=== PATIENT | female | born 1960 | race Caucasian/White ===

== ENCOUNTER 2017-08-17 21:57 | Inpatient (IN) | payer MEDICAID ==
[2017-08-17] MEDS ORDERED: ONDANSETRON 4 MG/2 ML VIAL ONE (22:23)
[2017-08-17] MEDS ORDERED: fentaNYL 100 MCG/2 ML INJ ONE (22:23)
[2017-08-17] MEDS ORDERED: NS 1,000 ML IV ONE (22:24)
[2017-08-17] MEDS ORDERED: ONDANSETRON 4 MG/2 ML VIAL IVP ONE (22:24)
[2017-08-17] MEDS: fentaNYL 100 MCG/2 ML INJ IVP ONE (22:26)
--- NOTE | 2017-08-17 23:14 | EDPHY ---
H & P Time Seen by Provider: 08/17/17 22:06 HPI/ROS: HPI Fall, right arm injury. 57-year-old female by private vehicle with friend. This patient reports that she stepped outside of the house, she tripped on a piece of slight and fell awkwardly onto her right arm. She complains of isolated mid right arm pain. She denies any loss of sensation or weakness in her hand. No neck pain. She did not hit her head. No loss of consciousness. She denies any other complaints. She is left-hand dominant. ROS: Constitutional: No fever, no chills. No weakness. Eyes: No discharge. No changes in vision. ENT: No sore throat. No nasal congestion or rhinorrhea. Respiratory: No cough. No shortness of breath. Cardiac: No chest pain, no palpitations. Gastrointestinal: No abdominal pain, no vomiting, no diarrhea. Genitourinary: No hematuria. No dysuria or increased frequency with urination. Musculoskeletal: No back pain. No neck pain. As above, no other extremity pain. Skin: No rashes. No lacerations or abrasions. Neurological: No headache. No focal weakness or altered sensation. Past medical history: Hypertension, hypothyroidism, depression, breast cancer, insomnia. 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 Nonsmoker. She has been drinking alcohol tonight. Physical Exam: General Appearance: Alert, no distress. This patient is responding to questions appropriately and in full sentences. This patient appears well- hydrated and well-nourished. Head: Normocephalic atraumatic. Face: Facial bones are stable on palpation. Eyes: Pupils equal and round and reactive to light, no pallor or injection. No lid erythema or edema. ENT, Mouth: Mucous membranes moist. Dentition is intact. No malocclusion of the jaw. No tongue lacerations or abrasions. Pharynx is clear. The bilateral nasal canals are clear. No septal hematoma. Respiratory: There are no retractions, lungs are clear to auscultation with good air movement bilaterally. Chest wall is stable to AP and lateral palpation. Cardiovascular: Regular rate and rhythm. No murmur. Gastrointestinal: Abdomen is soft and nontender, no masses, bowel sounds normal. Neurological: Motor sensory function is intact. Cranial nerves are normal. Cerebellar function intact. Skin: Warm and dry, no rashes. No lacerations, abrasions or contusions. Musculoskeletal: Neck is supple and nontender. The trachea is midline. No midline cervical, thoracic, lumbar or sacral tenderness on palpation. No flank tenderness on palpation. Right upper extremity exam: She has tenderness on palpation with deformity noted mid humerus. Skin is intact. Normal capillary refill in all digits. She is neurologically intact in all myotomes in dermatomes of her right hand. Strong distal radial and ulnar pulse. Otherwise, extremities are symmetrical, full range of motion except noted. All joints in the bilateral upper and bilateral lower extremities range without pain or impingement except noted. No tenderness on palpation of the long bones in the bilateral upper and bilateral lower extremities except noted. Psychiatric: No agitation. No depression. Database: EKG: Imaging: Right shoulder, right elbow and humerus series x-ray: Significant for a comminuted oblique fracture proximal 1/3 of the humerus. Interpreted by me. Procedures: Emergency department course: IV was placed. She was placed on a monitor. Her vital signs were reviewed. She was given 100 mcg of IV fentanyl for pain control initially. This will be repeated as needed for pain control. X-rays as above were obtained. She was placed in a sling. 11:10 p.m., patient re-evaluated. Right upper extremity is neurovascularly intact. Results of x-rays discussed with her. Her friend who brought her here explained to me that was very difficult to get her here. Any movement causes her significant pain. I do not think she will do well being discharged. Plan will be to admit her to the hospitalist service for pain management and have Orthopedics consult for management of her humerus fracture. She endorses. 11:15 p.m., spoke with on-call orthopedic surgeon Dr. Tony Sampson. Case discussed with him. He will see this patient in the morning. 11:20 p.m., spoke with hospitalist, Dr. García. Case discussed in detail. Patient accepted for admission to hospitalist service with plan as above. Patient's remaining emergency department course under my care uneventful. Right upper extremity has remained neurovascularly intact in the emergency department. Her pain has been controlled. Differential Diagnosis: The differential diagnosis on this patient includes but is not limited to proximal humerus fracture. Glenohumeral joint dislocation, AC joint injury, clavicle fracture, pneumothorax, traumatic brain injury, cervical spine injury unlikely. This represents a partial list of diagnoses considered. These considerations are based on history, physical exam, past history, reassessment and diagnostic testing. Smoking Status: Former smoker Constitutional: Initial Vital Signs Temperature (C) 36.7 C 08/17/17 22:13 Heart Rate 83 08/17/17 22:13 Respiratory Rate 18 08/17/17 22:13 Blood Pressure 136/89 H 08/17/17 22:13 O2 Sat (%) 100 08/17/17 22:13 O2 Delivery Mode Room Air O2 (L/minute) 3 Allergies/Adverse Reactions: cephalexin monohydrate [From Keflex] Allergy (Intermediate, Verified 11/14/15 13 :41) FAMILY HISTORY OF ALLERGIES dexamethasone [Dexamethasone] Allergy (Intermediate, Verified 11/14/15 13:41) BODY ACHES Home Medications: Medication Instructions Recorded Levothyroxine [Synthroid 100 mcg 100 mcg PO DAILY 12/15/12 (RX)] Lisinopril [Zestril 40 mg (RX)] 40 mg PO DAILY 12/15/12 Metoprolol Succinate 50 mg PO DAILY 12/15/12 Multivitamins [Tab-A-Tomy] 1 each PO DAILY 12/15/12 PARoxetine HCL [Paxil 20mg (RX)] 20 mg PO DAILY 12/15/12 Zolpidem Tartrate 5 - 10 mg PO HS 12/22/12 Medical Decision Making - Diagnostics Imaging Results: Imaging Impressions Humerus X-Ray 08/17/17 22:12 Impression: Comminuted displaced and angulated proximal diaphysis fracture right humerus. - Data Points Laboratory Results: Laboratory Results 08/17/17 22:40 08/17/17 22:40 08/17/17 08/17/17 08/17/17 22:40 22:40 22:40 WBC RBC Hgb Hct MCV MCH MCHC RDW Plt Count MPV Neut % (Auto) Lymph % (Auto) Stoddard % (Auto) Eos % (Auto) Baso % (Auto) Nucleat RBC Rel Count Absolute Neuts (auto) Absolute Lymphs (auto) Absolute Monos (auto) Absolute Eos (auto) Absolute Basos (auto) Absolute Nucleated RBC Immature Gran % Immature Gran # PT 12.7 SEC SEC (12.0-15.0) INR 0.93 (0.83-1.16) APTT 26.8 SEC SEC (23.0-38.0) Sodium Potassium Chloride Carbon Dioxide Anion Gap BUN Creatinine Estimated GFR Glucose Calcium Total Bilirubin 0.1 mg/dL mg/dL (0.1-1.4) Conjugated Bilirubin 0.1 mg/dL mg/dL (0.0-0.5) Unconjugated Bilirubin 0.0 mg/dL mg/dL (0.0-1.1) AST 23 IU/L IU/L (14-46) ALT 32 IU/L IU/L (9-52) Alkaline Phosphatase 92 IU/L IU/L (38-126) Total Protein 6.5 g/dL g/dL (6.3-8.2) Albumin 3.7 g/dL g/dL (3.5-5.0) Beta HCG, Qual NEGATIVE Ethyl Alcohol 08/17/17 08/17/17 22:40 22:40 WBC 7.95 10^3/uL 10^3/uL (3.80-9.50) RBC 3.42 10^6/uL L 10^6/uL (4.18-5.33) Hgb 11.9 g/dL L g/dL (12.6-16.3) Hct 35.3 % L % (38.0-47.0) MCV 103.2 fL H fL (81.5-99.8) MCH 34.8 pg H pg (27.9-34.1) MCHC 33.7 g/dL g/dL (32.4-36.7) RDW 13.6 % % (11.5-15.2) Plt Count 185 10^3/uL 10^3/uL (150-400) MPV 10.4 fL fL (8.7-11.7) Neut % (Auto) 71.6 % % (39.3-74.2) Lymph % (Auto) 20.1 % % (15.0-45.0) Stoddard % (Auto) 6.5 % % (4.5-13.0) Eos % (Auto) 0.5 % L % (0.6-7.6) Baso % (Auto) 0.4 % % (0.3-1.7) Nucleat RBC Rel Count 0.0 % % (0.0-0.2) Absolute Neuts (auto) 5.69 10^3/uL 10^3/uL (1.70-6.50) Absolute Lymphs (auto) 1.60 10^3/uL 10^3/uL (1.00-3.00) Absolute Monos (auto) 0.52 10^3/uL 10^3/uL (0.30-0.80) Absolute Eos (auto) 0.04 10^3/uL 10^3/uL (0.03-0.40) Absolute Basos (auto) 0.03 10^3/uL 10^3/uL (0.02-0.10) Absolute Nucleated RBC 0.00 10^3/uL 10^3/uL (0-0.01) Immature Gran % 0.9 % % (0.0-1.1) Immature Gran # 0.07 10^3/uL 10^3/uL (0.00-0.10) PT INR APTT Sodium 145 mEq/L H mEq/L (134-144) Potassium 4.1 mEq/L mEq/L (3.5-5.2) Chloride 113 mEq/L H mEq/L (97-110) Carbon Dioxide 16 mEq/l L mEq/l (22-31) Anion Gap 16 mEq/L mEq/L (8-16) BUN 27 mg/dL H mg/dL (7-23) Creatinine 1.1 mg/dL H mg/dL (0.6-1.0) Estimated GFR 52 Glucose 98 mg/dL mg/dL (70-100) Calcium 9.4 mg/dL mg/dL (8.5-10.4) Total Bilirubin Conjugated Bilirubin Unconjugated Bilirubin AST ALT Alkaline Phosphatase Total Protein Albumin Beta HCG, Qual Ethyl Alcohol 100 mg/dL H mg/dL (0-10) Medications Given: Acetaminophen (Tylenol) 650 mg PO Q4HRS PRN PRN Reason: Pain, Mild/Fever, Can Take PO Stop: 02/14/18 00:02 Last Admin: 08/18/17 02:44 Dose: 650 mg Lactated Ringer's (Lr) 1,000 mls @ 125 mls/hr IV CONT NALDO Stop: 02/14/18 02:29 Last Admin: 08/18/17 02:45 Dose: 1,000 mls Lorazepam (Ativan) 0.5 - 1 mg PO Q8HRS PRN PRN Reason: Anxiety, Able to Take PO Stop: 02/14/18 00:02 Last Admin: 08/18/17 00:46 Dose: 1 mg Morphine Sulfate (Morphine) 1 - 2 mg IVP Q1HR PRN PRN Reason: Pain, Severe Unable to Take PO Stop: 08/28/17 00:02 Last Admin: 08/18/17 05:02 Dose: 2 mg Oxycodone HCl (Oxycodone Ir) 5 - 10 mg PO Q3HRS PRN PRN Reason: Pain, Severe Able to Take PO Stop: 08/28/17 00:02 Last Admin: 08/18/17 03:52 Dose: 10 mg Discontinued Medications Fentanyl (Sublimaze) 100 mcg IVP EDNOW ONE Stop: 08/17/17 22:25 Last Admin: 08/18/17 00:21 Dose: 100 mcg Fentanyl (Sublimaze) 100 mcg IVP EDNOW ONE Stop: 08/18/17 00:18 Last Admin: 08/18/17 00:26 Dose: Not Given Sodium Chloride (Ns) 1,000 mls @ 0 mls/hr IV EDNOW ONE; Wide Open PRN Reason: Protocol Stop: 08/17/17 22:25 Last Admin: 08/17/17 22:25 Dose: 1,000 mls Ondansetron HCl (Zofran) 4 mg IVP EDNOW ONE Stop: 08/17/17 22:25 Last Admin: 08/17/17 22:26 Dose: 4 mg Thiamine HCl (Vitamin B-1) 100 mg PO ONCE ONE Stop: 08/18/17 00:07 Last Admin: 08/18/17 01:09 Dose: 100 mg Departure - Departure Disposition: [facility] Inpatient Acute Clinical Impression: History of fall, Closed comminuted right humeral fracture
[2017-08-17 23:20] LABS: % IMMATURE GRANULYOCYTES 0.9 % (0.0-1.1); ABSOLUTE IMMATURE GRANULOCYTES 0.07 10^3/uL (0.00-0.10); ADD DIFF? NO; ADD MORPH? NO; ADD SCAN? NO; ATYPICAL LYMPHOCYTE FLAG 10 (0-99); FRAGMENT RBC FLAG 0 (0-99); HEMATOCRIT 35.3 % (38.0-47.0); HEMOGLOBIN 11.9 g/dL (12.6-16.3); LEFT SHIFT FLG 0 (0-99); LIPEMIA HEMOLYSIS FLAG 80 (0-99); MEAN CELL HEMOGLOBIN 34.8 pg (27.9-34.1); MEAN CELL HEMOGLOBIN CONCENTR. 33.7 g/dL (32.4-36.7); MEAN CELL VOLUME 103.2 fL (81.5-99.8); MEAN PLATELET VOLUME 10.4 fL (8.7-11.7); PLATELET CLUMPS FLAG 30 (0-99); PLATELET COUNT 185 10^3/uL (150-400); RED BLOOD CELL COUNT 3.42 10^6/uL (4.18-5.33); RED CELL DISTRIBUTION WIDTH 13.6 % (11.5-15.2)
[2017-08-17 23:30] LABS: ANION GAP 16 mEq/L (8-16); CALCIUM 9.4 mg/dL (8.5-10.4); CARBON DIOXIDE 16 mEq/l (22-31); CHLORIDE 113 mEq/L (97-110); CREATININE 1.1 mg/dL (0.6-1.0); ETHANOL SERUM 100 mg/dL (0-10); GLOMERULAR FILTRATION RATE 52; GLUCOSE 98 mg/dL (70-100); POTASSIUM 4.1 mEq/L (3.5-5.2); SODIUM 145 mEq/L (134-144)
[2017-08-18] MEDS ORDERED: PROMETHAZINE HCL 25 MG/ML INJ IVP PRN (00:03)
[2017-08-18] MEDS ORDERED: diphenhydrAMINE 25 MG CAP PO PRN (00:03)
[2017-08-18] MEDS ORDERED: LORazepam 0.5 MG TAB PO PRN (00:03)
[2017-08-18] MEDS ORDERED: ACETAMINOPHEN 325 MG TAB PO PRN (00:03)
[2017-08-18] MEDS ORDERED: ONDANSETRON 4 MG/2 ML VIAL IVP PRN (00:03)
[2017-08-18] MEDS ORDERED: THIAMINE HCL 100 MG TAB PO ONE (00:06)
[2017-08-18] MEDS ORDERED: fentaNYL 100 MCG/2 ML INJ IVP ONE (00:17)
[2017-08-18] MEDS: fentaNYL 100 MCG/2 ML INJ IVP ONE (00:21)
[2017-08-18 00:22] LABS: INR 0.93 (0.83-1.16); PROTIME(PATIENT) 12.7 SEC (12.0-15.0)
[2017-08-18 00:23] LABS: APTT 26.8 SEC (23.0-38.0)
[2017-08-18 00:28] LABS: ALBUMIN 3.7 g/dL (3.5-5.0); BILIRUBIN,TOTAL 0.1 mg/dL (0.1-1.4); BILIRUBIN-CONJUGATED 0.1 mg/dL (0.0-0.5); TOTAL PROTEIN 6.5 g/dL (6.3-8.2)
[2017-08-18] MEDS: oxyCODONE IR 5 MG TAB PO PRN ×6 (01:09→21:03)
--- NOTE | 2017-08-18 01:49 | PDGENHP ---
History and Physical - Chief Complaint right arm pain - History of Present Illness Source- patient provides history and appears reliable. case discussed with ED provider and EMR reviewed. HPI - Pleasant 57 yo F with pmhx significant for HTN, depression, obesity (BMI 37), and regular alcohol use who presents to the ED today following a mechanical fall and resulting right arm pain. Patient reports she was coming back into the house and tripped on a step of a wooden deck which was not light. Patient landed on her right arm and "it felt like it had shattered." Patient denies any head injury of loss of consciousness. She denies any numbness or tingling in her arm or hand. Patient is noting significant pain increase since she was placed into a sling. Patient denies any preceding lightheadedness, chest pain or shortness of breath before her fall. History Information - Allergies/Home Medication List Allergies/Adverse Reactions: cephalexin monohydrate [From Keflex] Allergy (Intermediate, Verified 11/14/15 13 :41) FAMILY HISTORY OF ALLERGIES dexamethasone [Dexamethasone] Allergy (Intermediate, Verified 11/14/15 13:41) BODY ACHES Home Medications: Levothyroxine [Synthroid 100 mcg (RX)] 100 mcg PO DAILY 12/15/12 [Last Taken 07/28 07:00] Lisinopril [Zestril 40 mg (RX)] 40 mg PO DAILY 12/15/12 [Last Taken 12/23/12] Metoprolol Succinate 50 mg PO DAILY 12/15/12 [Last Taken 12/24/12] Multivitamins [Tab-A-Tomy] 1 each PO DAILY 12/15/12 [Last Taken 12/23/12] PARoxetine HCL [Paxil 20mg (RX)] 20 mg PO DAILY 12/15/12 [Last Taken 12/24/12] Zolpidem Tartrate 5 - 10 mg PO HS 12/22/12 [Last Taken 12/23/12] I have personally reviewed and updated: family history, medical history, social history, surgical history - Past Medical History Additional medical history: hx Breast cancer s/p left mastectomy. benign essential HTN. hypothyroidism. depression. obesity (BMI 37). regular moderate alcohol use (every other day) - Surgical History Additional surgical history: left mastectomy - Family History Additional family history: father - DM, CAD/stents. mother - atrial fibrillation. MGM - HTN, CAD - Social History Smoking Status: Former smoker Tobacco Use: Cigarettes Alcohol Use: Other (moderate use every other day 2-3 vodka based beverages or wine.) Drug Use: Marijuana (occasional ) Additional social history: COR - FULL. Daughter yue THORNTON. Review of Systems Review of Systems: ROS: 10pt was reviewed & negative except for what was stated in HPI & below Constitutional: Reports: no symptoms EENMT: Reports: no symptoms, other (dry mouth) Cardiac: Reports: no symptoms Respiratory: Reports: no symptoms Gastrointestinal: Reports: no symptoms Genitourinary: Reports: no symptoms Muscolosketal: Reports: joint pain (right arm), muscle pain (right arm) Skin: Reports: no symptoms Neurological: Reports: no symptoms. Denies: anxiety, depressed, headache, numbness, tingling Hematologic/Lymphatic: Denies: easy bleeding, easy bruising Physical Exam Physical Exam: Selected Entries 08/17/17 22:13 Blood Pressure Automatic Method Heart Rate 83 Respiratory 18 Rate O2 Sat (%) 100 Temperature (C) 36.7 C Blood Pressure 136/89 H Mean Arterial 104 H Pressure (MAP) O2 Delivery Room Air Mode Temp Pulse Resp BP Pulse Ox 36.9 C 68 16 135/66 H 98 08/18/17 01:13 08/18/17 01:13 08/18/17 01:13 08/18/17 01:13 08/18/17 01:13 O2 (L/minute) 3 Constitutional: obese, uncomfortable, other (patient in mild distress 2/2 pain and tearful. her right arm is in a sling. ) Eyes: PERRL (decreased reactivity to light bilaterally but symmetric. ), anicteric sclera, EOMI, scleral injection (mild) Ears, Nose, Mouth, Throat: dry mucous membranes, other (no nasal discharge. ), No oral ulcer, No poor dentition Cardiovascular: regular rate and rhythym, no murmur, rub, or gallop, No systolic murmur, No edema Peripheral Pulses: 1+: dorsalis-pedis (R), dorsalis-pedis (L) Respiratory: no respiratory distress, no rales or rhonchi, clear to auscultation Gastrointestinal: normoactive bowel sounds, soft, non-tender abdomen, no palpable masses, other (obese abdomen) Genitourinary: no bladder tenderness, No azul in urethra Skin: warm, normal color, No rash Musculoskeletal: joint tenderness (right arm), pain with ROM (right arm), No generalized weakness Neurologic: AAOx3, CN II-XII Intact, No numbness, No facial droop Psychiatric: interacting appropriately, thought process linear, anxious, No poor insight, No poor judgement, No poor memory Lab Data & Imaging Review 08/17/17 22:40 08/17/17 22:40 WBC 7.95 10^3/uL (3.80-9.50) 08/17/17 22:40 RBC 3.42 10^6/uL (4.18-5.33) L 08/17/17 22:40 Hgb 11.9 g/dL (12.6-16.3) L 08/17/17 22:40 Hct 35.3 % (38.0-47.0) L 08/17/17 22:40 MCV 103.2 fL (81.5-99.8) H 08/17/17 22:40 MCH 34.8 pg (27.9-34.1) H 08/17/17 22:40 MCHC 33.7 g/dL (32.4-36.7) 08/17/17 22:40 RDW 13.6 % (11.5-15.2) 08/17/17 22:40 Plt Count 185 10^3/uL (150-400) 08/17/17 22:40 MPV 10.4 fL (8.7-11.7) 08/17/17 22:40 Neut % (Auto) 71.6 % (39.3-74.2) 08/17/17 22:40 Lymph % (Auto) 20.1 % (15.0-45.0) 08/17/17 22:40 Warrick % (Auto) 6.5 % (4.5-13.0) 08/17/17 22:40 Eos % (Auto) 0.5 % (0.6-7.6) L 08/17/17 22:40 Baso % (Auto) 0.4 % (0.3-1.7) 08/17/17 22:40 Nucleat RBC Rel Count 0.0 % (0.0-0.2) 08/17/17 22:40 Absolute Neuts (auto) 5.69 10^3/uL (1.70-6.50) 08/17/17 22:40 Absolute Lymphs (auto) 1.60 10^3/uL (1.00-3.00) 08/17/17 22:40 Absolute Monos (auto) 0.52 10^3/uL (0.30-0.80) 08/17/17 22:40 Absolute Eos (auto) 0.04 10^3/uL (0.03-0.40) 08/17/17 22:40 Absolute Basos (auto) 0.03 10^3/uL (0.02-0.10) 08/17/17 22:40 Absolute Nucleated RBC 0.00 10^3/uL (0-0.01) 08/17/17 22:40 Immature Gran % 0.9 % (0.0-1.1) 08/17/17 22:40 Immature Gran # 0.07 10^3/uL (0.00-0.10) 08/17/17 22:40 PT 12.7 SEC (12.0-15.0) 08/17/17 22:40 INR 0.93 (0.83-1.16) 08/17/17 22:40 APTT 26.8 SEC (23.0-38.0) 08/17/17 22:40 Sodium 145 mEq/L (134-144) H 08/17/17 22:40 Potassium 4.1 mEq/L (3.5-5.2) 08/17/17 22:40 Chloride 113 mEq/L (97-110) H 08/17/17 22:40 Carbon Dioxide 16 mEq/l (22-31) L 08/17/17 22:40 Anion Gap 16 mEq/L (8-16) 08/17/17 22:40 BUN 27 mg/dL (7-23) H 08/17/17 22:40 Creatinine 1.1 mg/dL (0.6-1.0) H 08/17/17 22:40 Estimated GFR 52 08/17/17 22:40 Glucose 98 mg/dL (70-100) 08/17/17 22:40 Calcium 9.4 mg/dL (8.5-10.4) 08/17/17 22:40 Total Bilirubin 0.1 mg/dL (0.1-1.4) 08/17/17 22:40 Conjugated Bilirubin 0.1 mg/dL (0.0-0.5) 08/17/17 22:40 Unconjugated Bilirubin 0.0 mg/dL (0.0-1.1) 08/17/17 22:40 AST 23 IU/L (14-46) 08/17/17 22:40 ALT 32 IU/L (9-52) 08/17/17 22:40 Alkaline Phosphatase 92 IU/L (38-126) 08/17/17 22:40 Total Protein 6.5 g/dL (6.3-8.2) 08/17/17 22:40 Albumin 3.7 g/dL (3.5-5.0) 08/17/17 22:40 Beta HCG, Qual NEGATIVE 08/17/17 22:40 Ethyl Alcohol 100 mg/dL (0-10) H 08/17/17 22:40 Imaging Review: Right humerus, 2 views. History: Pain. Findings: There is a comminuted fracture of the proximal diaphysis of the right humerus. 1.7 cm of lateral displacement of the distal shaft to the proximal shaft and posterior angulation. Glenohumeral articulation is unremarkable. Degenerative change acromioclavicular joint. Impression: Comminuted displaced and angulated proximal diaphysis fracture right humerus. Assessment & Plan Assessment: Closed comminuted left humeral fracture (Acute) - Dr. Sampson with ortho team consulted from ED and will plan to have patient evaluated in AM by team. patient in a sling at this time. she will be npo. will also check coags 2/2 hx of etoh. History of fall (Acute) - patient reports tripping on [employer] step. PT/OT. pain 2/2 trauma - morphine, oxy ir (minimize tylenol with etoh currently in system). alcohol consumption moderate - will need further counseling after patient sobered. patient with macrocytic anemia will be given thiamine. ativan prn. ROSANA - mild - pt baseline cr appears 0.9. Patient appears dehydrated. will given IVF supplementation while patient npo. anemia - macrocytosis present so suspect etoh related however also possible related to patient right arm fracture. no evidence of active bleeding. will continue to monitor. hypernatremia - likely 2/2 dehydration. IVF as above. hyperchloridemia - IVF as above. chronic medical problems benign essential HTN - initial BPs elevated likely 2/2 pain. monitor. hydralazine prn. hypothyroidism - resume l-thyroxine when diet advanced. depression - resume patient paxil when diet advanced. obesity (BMI 37) FEN - IVF overnight while npo. electrolyte replacement prn. PPX - SCDs. holding anticoagulation pending ortho recommendations. COR - FULL. Patient daughter Yue to act as proxy. Dispo - Admit to observation on the medical floor at this time.
[2017-08-18] MEDS ORDERED: LR 1,000 ML IV SCH (02:30)
[2017-08-18 05:11] LABS: % IMMATURE GRANULYOCYTES 0.5 % (0.0-1.1); ABSOLUTE IMMATURE GRANULOCYTES 0.03 10^3/uL (0.00-0.10); ADD DIFF? NO; ADD MORPH? NO; ADD SCAN? NO; ATYPICAL LYMPHOCYTE FLAG 0 (0-99); FRAGMENT RBC FLAG 0 (0-99); HEMOGLOBIN 10.4 g/dL (12.6-16.3); LEFT SHIFT FLG 0 (0-99); LIPEMIA HEMOLYSIS FLAG 80 (0-99); MEAN CELL HEMOGLOBIN 34.8 pg (27.9-34.1); MEAN CELL HEMOGLOBIN CONCENTR. 33.5 g/dL (32.4-36.7); MEAN CELL VOLUME 103.7 fL (81.5-99.8); MEAN PLATELET VOLUME 10.6 fL (8.7-11.7); PLATELET CLUMPS FLAG 0 (0-99); PLATELET COUNT 173 10^3/uL (150-400); RED BLOOD CELL COUNT 2.99 10^6/uL (4.18-5.33); RED CELL DISTRIBUTION WIDTH 13.7 % (11.5-15.2)
[2017-08-18 05:29] LABS: ALANINE AMINOTRANSFERASE 35 IU/L (9-52); ALBUMIN 3.1 g/dL (3.5-5.0); ALKALINE PHOSPHATASE 70 IU/L (38-126); ANION GAP 8 mEq/L (8-16); ASPARTATE AMINOTRANSFERASE 21 IU/L (14-46); BILIRUBIN,TOTAL 0.2 mg/dL (0.1-1.4); CALCIUM 8.8 mg/dL (8.5-10.4); CARBON DIOXIDE 21 mEq/l (22-31); CHLORIDE 111 mEq/L (97-110); CREATININE 0.9 mg/dL (0.6-1.0); GLOMERULAR FILTRATION RATE > 60; GLUCOSE 94 mg/dL (70-100); MAGNESIUM 1.7 mg/dL (1.6-2.3); POTASSIUM 4.7 mEq/L (3.5-5.2); SODIUM 140 mEq/L (134-144); TOTAL PROTEIN 5.7 g/dL (6.3-8.2)
--- NOTE | 2017-08-18 06:36 | GCON ---
[f rep st] CONSULTATION DATE OF CONSULTATION: 08/18/2017 REASON FOR CONSULTATION: Right upper extremity injury. HISTORY OF PRESENT ILLNESS: The patient is a 57-year-old, left hand-dominant woman, who on the i ng of admission, sustained a fall on her right outstretched arm, resulting in right upper arm pain. She denies any previous problems specific to her right upper extremity, but states that she did have chemotherapy for cancer 6 years ago, and had "bony involvement" at that time. EXAMINATION: Relative to the consultation reveals diffuse swelling in her right upper arm with circu mferential tenderness. Her distal neurovascular exam including radial, median, and ulnar nerves, is grossly intact to motor and sensory exams. IMAGING: Radiographs show evidence of a middiaphyseal humerus fracture with marked comminution. The re is mild translation of the fracture, but overall favorable angular alignment. ASSESSMENT: Closed right diaphyseal humerus fracture. PLAN: I spoke with the patient regarding her condition and treatment options. Both risks and benefi ts of surgical and nonsurgical treatment were discussed in detail. Based on the fact that if this fr acture stays reasonably well lined up, the likelihood is it will heal uneventfully with nonsurgical t reatment. It was recommended that a nonoperative approach be pursued. She was informed; however, th at if alignment changes, an operative approach may be recommended in the future. She will utilize a sling and was instructed on having her arm as best as possible in a dependent position. After approx imately 1 week, she can be transitioned into a humeral fracture brace. Followup will be in 1 week (1 10/27/2016) at which point, repeat radiographs will be obtained to assess alignment. /[id number]/MODL
[2017-08-18 06:52] LABS: COLOR YELLOW; LEUKOCYTE ESTERASE,URINE 3+ (NEGATIVE); NITRITE,URINE NEGATIVE (NEGATIVE)
[2017-08-18 07:00] LABS: BACTERIA TRACE /hpf (NONE SEEN); MUCUS TRACE /lpf (NONE-1+); WBC,URINE 50-182 /hpf (0-3)
[2017-08-18 07:01] LABS: RBC,URINE NONE SEEN /hpf (0-3)
[2017-08-18] MEDS: THIAMINE HCL 100 MG TAB PO SCH (07:57)
--- NOTE | 2017-08-18 10:56 | HOSPPROG ---
Hospitalist Progress Note Assessment/Plan: Patient is a 57-year-old female who fell and sustained a right humerus fracture. Today is my 1st encounter with the patient. Chart reviewed. *Closed comminuted left humeral fracture (Acute) - Dr. Sampson evaluated her and recommended nonsurgical approach at this time -to wear a sling for 1 week and then a humeral fracture brace -further followup with Orthopedics in 1 week * gait instability with fall * pyuria -asked for urine culture *hypoxemia -secondary from narcotics most likely -will monitor * anemia -further f/u with PCP * macrocytosis * alcohol use -she doesn't believe this impacted her falling -reviewed w her the BAL *Hypernatremia -resolved, due to dehydration * hypothyroidism -home meds restarted * depression -on Paxil * obesity with a BMI of 37 * acute kidney injury -resolved *Plan: will have PT and OT see her to help mobilize her. If stable, will dc this afternoonl Subjective: Silvia said her pain was elevated during the night, better when I evaluated her. Objective: Vital Signs Temp Pulse Resp BP Pulse Ox 36.6 C 66 16 120/57 L 99 08/18/17 07:27 08/18/17 07:27 08/18/17 07:27 08/18/17 07:27 08/18/17 07:27 Laboratory Results 08/18/17 04:10 08/18/17 04:10 08/17/17 08/18/17 08/19/17 05:59 05:59 05:59 Intake Total 1500 780 Output Total 500 300 Balance 1000 480 PT 12.7 SEC (12.0-15.0) 08/17/17 22:40 INR 0.93 (0.83-1.16) 08/17/17 22:40 - Physical Exam Constitutional: appears nourished, obese, uncomfortable Eyes: PERRL Ears, Nose, Mouth, Throat: hearing normal Cardiovascular: regular rate and rhythym Respiratory: no respiratory distress Gastrointestinal: normoactive bowel sounds Skin: other (good cms on right hand, fingers) Musculoskeletal: muscular tenderness (right arm) Neurologic: AAOx3, sensation intact bilaterally Psychiatric: interacting appropriately, not anxious, not encephalopathic ICD10 Worksheet Patient Problems: Problems Problem Status Onset Closed comminuted right humeral fracture Acute History of fall Acute Neoplasm of breast Active Left knee sprain Acute Right foot sprain Acute
[2017-08-18] MEDS: LEVOTHYROXINE 112 MCG TAB PO SCH (11:26)
[2017-08-18] MEDS: METOPROLOL SUCCINATE XR 50 MG TAB PO SCH (11:27)
[2017-08-18] MEDS: LISINOPRIL 40 MG TAB PO SCH (11:27)
[2017-08-18] MEDS: PARoxetine HCL 20 MG TAB PO SCH (12:10)
[2017-08-18] MEDS: HYDROCODONE/APAP 5/325 TAB PO PRN ×3 (14:08→22:54)
--- NOTE | 2017-08-18 15:13 | PDMN ---
Medical Necessity Medical necessity: Change to IP, as of 08/18/17, per [employer]; los >2 mn for ongoing eval/tx of acute closed comminuted L humeral fx w/significant pain r/t fall; per progress note & order 08/18/17
[2017-08-18 16:39] LABS: PHENCYCLIDINE URINE BCH < 6 ng/ml (NEGATIVE); PHENCYCLIDINE URINE BCH NEGATIVE (NEGATIVE); TETRAHYDROCANNABINOL URINE 29 ng/mL (NEGATIVE); TETRAHYDROCANNABINOL URINE NEGATIVE (NEGATIVE)
--- NOTE | 2017-08-18 17:00 | ASMTCMCOM ---
CM Note CM Note Notes: Pt admitted to hospital after fall with R humerus fx. 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 PT recommending out pt PT and OT recommending home w/no OT f/u needed. Discussed w/RN. Anticipate dc home independant but CM will follow for changes/needs. Date Signed: 08/18/2017 05:00 PM Electronically Signed By:Tammy Lindsey RN
[2017-08-19] MEDS: oxyCODONE IR 5 MG TAB PO PRN ×4 (00:50→12:10)
[2017-08-19 05:07] LABS: HEMATOCRIT 32.6 % (38.0-47.0); HEMOGLOBIN 10.4 g/dL (12.6-16.3)
[2017-08-19] MEDS: LEVOTHYROXINE 112 MCG TAB PO SCH (06:43)
[2017-08-19] MEDS: HYDROCODONE/APAP 5/325 TAB PO PRN (06:43)
[2017-08-19 07:27] VITALS: RESP 16; TEMP 98; O2SAT 97
[2017-08-19] MEDS: LISINOPRIL 40 MG TAB PO SCH (08:16)
[2017-08-19] MEDS: METOPROLOL SUCCINATE XR 50 MG TAB PO SCH (08:16)
[2017-08-19] MEDS: THIAMINE HCL 100 MG TAB PO SCH (08:16)
[2017-08-19] MEDS: PARoxetine HCL 20 MG TAB PO SCH (08:16)
[2017-08-19 08:19] VITALS: BP 131/69; PULSE 71
[2017-08-19] MEDS ORDERED: MAGNESIUM HYDROXIDE 30 ML UDCUP PO PRN (08:32)
[2017-08-19] MEDS ORDERED: BISACODYL 10 MG SUPP PR PRN (08:32)
[2017-08-19] MEDS ORDERED: IBUPROFEN 200 MG TAB PO PRN (08:32)
[2017-08-19] MEDS ORDERED: LACTULOSE 20 GM/30 ML UDCUP PO PRN (08:32)
--- NOTE | 2017-08-19 08:34 | HOSPPROG ---
Hospitalist Progress Note Assessment/Plan: Patient is a 57-year-old female who fell and sustained a right humerus fracture. *Closed comminuted left humeral fracture (Acute) - Dr. Smapson evaluated her and recommended nonsurgical approach at this time -further followup with Orthopedics in 1 week -pain cont to be difficult to manage even w pain medications, trial of ibuprofen (use temporarily) * gait instability with fall * pyuria -asked for urine culture *hypoxemia -secondary from narcotics most likely -will monitor -check a chest xray today * anemia -further f/u with PCP * macrocytosis * alcohol use -she doesn't believe this impacted her falling -reviewed w her the BAL *Hypernatremia -resolved, due to dehydration * hypothyroidism -home meds restarted * depression -on Paxil * obesity with a BMI of 37 * acute kidney injury -resolved *Plan: will get a chest xray and humerus xray prior to dc today. Hopefully, can go later this afternoon if pain is better. Subjective: Silvia said her right arm is having ongoing pain. She is concerned and would like another xray of her arm. Objective: Vital Signs Temp Pulse Resp BP Pulse Ox 36.7 C 71 16 131/69 H 97 08/19/17 07:25 08/19/17 08:16 08/19/17 07:25 08/19/17 08:16 08/19/17 07:25 Laboratory Results 08/19/17 04:05 08/18/17 08/19/17 08/20/17 05:59 05:59 05:59 Intake Total 1230 Output Total 200 Balance 1030 PT 12.7 SEC (12.0-15.0) 08/17/17 22:40 INR 0.93 (0.83-1.16) 08/17/17 22:40 - Physical Exam Constitutional: no apparent distress, uncomfortable, No not in pain Eyes: PERRL Ears, Nose, Mouth, Throat: hearing normal Cardiovascular: regular rate and rhythym Respiratory: no respiratory distress Gastrointestinal: normoactive bowel sounds Skin: warm Musculoskeletal: generalized weakness Neurologic: AAOx3 Psychiatric: interacting appropriately ICD10 Worksheet Patient Problems: Problems Problem Status Onset Closed comminuted right humeral fracture Acute History of fall Acute Neoplasm of breast Active Left knee sprain Acute Right foot sprain Acute
[2017-08-19] MEDS ORDERED: POLYETHYLENE GLYCOL 3350 17 GM PKT PO SCH (09:00)
[2017-08-19] MEDS ORDERED: SENNOSIDES/DOCUSATE SODIUM TAB PO SCH (09:00)
[2017-08-19] MEDS ORDERED: oxyCODONE IR 5 MG TAB PO PRN (12:48)
--- NOTE | 2017-08-19 13:39 | ASMTCMCOM ---
CM Note CM Note Notes: Chart reviewed. Patient medically stable for dc. Per therapy she is ok to go to outpatient therapy, no current needs identified. CM available should needs arise. Date Signed: 08/19/2017 01:38 PM Electronically Signed By:Nya Smtih RN
--- NOTE | 2017-08-19 14:42 | GDS ---
[f rep st] DISCHARGE SUMMARY DISCHARGE DIAGNOSES: 1. Closed comminuted humeral fracture. 2. Gait instability with fall. 3. Pyuria. 4. Hypoxemia. 5. Anemia. 6. Macrocytosis. 7. Alcohol use. 8. Hypernatremia. 9. Hypothyroidism. 10. Depression. 11. Obesity with a BMI of 37. 12. Acute kidney injury. CONSULTATION: Dr. Sampson with Orthopedic Services. HISTORY OF PRESENT ILLNESS: Briefly, the patient is a 57-year-old female who fell and sustained a right humerus fracture. She was evaluated by Dr. Sampson who recommended nonsurgical approach. She will further follow up with him in the outpatient setting. HOSPITAL COURSE: 1. Closed commuted humeral fracture. She has a sling in place. She will get further follow up with Dr. Sampson. Pain is well controlled this afternoon. 2. Gait instability with fall. Physical therapy and occupational therapy worked with her. She is stable. 3. Pyuria. I suspect she has chronic colonization. She has no signs or symptoms of a UTI. 4. Hypoxemia. Suspect this is mainly from use of the narcotics. Her chest x- ray showed nothing acute. 5. Anemia. Further follow up with her PCP. 6. Macrocytosis. Further evaluation by her PCP. 7. Alcohol use. Her blood alcohol level was 100 on admission. She does not believe this is an issue for her as far as using alcohol. She has had no signs or symptoms of any type of withdrawal. 8. Hyponatremia, resolved. 9. Hypothyroidism, stable. 10. Depression, on Paxil. 11. Obesity. She has a BMI of 37. 12. Acute kidney injury, resolved. DISCHARGE CONDITION: Stable. Blood pressure is 131/69, O2 sats on room air 97% , respiratory rate 16, pulse 71, temperature is 36.7 Celsius. MEDICATIONS AT DISCHARGE: Please see the EMR. DISCHARGE INSTRUCTIONS: 1. Further follow up with Dr. Sampson in a week. 2. Take oxycodone as prescribed and alternate it with Tylenol. 3. Do not drink or drive while on the pain medications. Also to note the pain medications cause constipation and is to take stool softener while on these. 4. To get an outpatient sleep study. She may have some sleep apnea. 5. Follow up with her Primary Care provider in regards to anemia. Greater than 30 minutes discharging and coordinating the patient's care. /[id number]/MODL MTDD
--- NOTE | 2017-08-19 16:35 | ASDISCHSUM ---
Discharge Information Plan Status:Home with Home Health Medically Cleared to Leave:08/18/2017 Discharge Date:08/19/2017 04:33 PM CM D/C Disposition:Home, Routine, Self-Care ADT D/C Disposition:Home, Routine, Self-Care Projected Discharge Date:08/19/2017 04:33 PM Transportation at D/C: Discharge Delay Reason: Follow-Up Date:08/19/2017 04:33 PM Discharge Slot: Final Diagnosis: Placement Information Patient Contact Information Contact Name:RAFY Relationship:Friend Address:[address] [place] [address] Home Phone: City:[place] Alternate Phone: State/Zip Code:[place] [address] Email: Financial Information Financial Class: Primary Plan Desc:[employer] [place] Primary Plan Number:[id number] Secondary Plan Desc: Secondary Plan Number: Assessment Information [facility] CM Progress Note CM Note CM Note Notes: Pt admitted to hospital after fall with R humerus fx. 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 PT recommending out pt PT and OT recommending home w/no OT f/u needed. Discussed w/RN. Anticipate dc home independant but CM will follow for changes/needs. Date Signed: 08/18/2017 05:00 PM Electronically Signed By:Tammy Lindsey RN LACE LACE Length of stay for Answers: 1 day current admission Acuity / Level of Care Answers: Was the patient admitted to hospital via the emergency department? Yes: Emergency dept visits in Answers: 1 last 6 months Score: 5 Date Signed: 08/19/2017 01:36 PM Electronically Signed By:Nya Smith RN [facility] CM Progress Note CM Note CM Note Notes: Chart reviewed. Patient medically stable for dc. Per therapy she is ok to go to outpatient therapy, no current needs identified. CM available should needs arise. Date Signed: 08/19/2017 01:38 PM Electronically Signed By:Nya Smith RN Intervention Information
== END 2017-08-19 16:33 | disposition home health service (06) | DRG 563 ==
LOC: F3N 08-18 01:00 → OBSVTOIN 08-18 14:32
PROVIDERS: ADMIT Family Medicine; ATTEND Internal Medicine
DX: S42.351A Displaced comminuted fracture of shaft of humerus, right arm, initial encounter for closed fracture (principal); W01.0XXA Fall on same level from slipping, tripping and stumbling without subsequent striking against object, initial encounter; Y92.018 Other place in single-family (private) house as the place of occurrence of the external cause; Y99.9 Unspecified external cause status; N17.9 Acute kidney failure, unspecified; E87.0 Hyperosmolality and hypernatremia; E86.0 Dehydration; E87.8 Other disorders of electrolyte and fluid balance, not elsewhere classified; R09.02 Hypoxemia; T40.605A Adverse effect of unspecified narcotics, initial encounter; R26.81 Unsteadiness on feet; I10 Essential (primary) hypertension; F32.9 Major depressive disorder, single episode, unspecified; E66.9 Obesity, unspecified; Z68.37 Body mass index [BMI] 37.0-37.9, adult; E03.9 Hypothyroidism, unspecified; D64.9 Anemia, unspecified; D75.89 Other specified diseases of blood and blood-forming organs; Z85.3 Personal history of malignant neoplasm of breast; Z90.12 Acquired absence of left breast and nipple; Z87.891 Personal history of nicotine dependence
CPT/HCPCS: 80307; 96374; 97161-GP; 97165-GO; 97535-GO; G0378; G0480; G8978-GP-CI; G8979-GP-CI; G8980-GP-CI; J2405; J3010

== ENCOUNTER 2018-04-09 14:18 | Inpatient (IN) | payer MEDICAID ==
--- NOTE | 2018-04-09 14:35 | EDPHY ---
HPI/HX/ROS/PE/MDM Narrative: CHIEF COMPLAINT: Hypotension, tachycardia HISTORY OF PRESENT ILLNESS: The patient is a 58 y/o female with a history of breast cancer with mastectomy arriving via EMS from the [facility] for hypotension, tachycardia and possible atrial flutter. She was in surgery for fat grafting in breasts and breast implant in left breast for reconstruction following breast cancer treatments. While in surgery, she became hypotensive and required phenylephrine to raise her blood pressure. About half an hour later, she again became hypotensive. She developed tachycardia with a applications coordinator reading possible atrial flutter. There was concerned regarding an intraoperative PR. Surgery was stopped, the patient was recovered from her anesthesia. Postoperatively she was noted to again be tachycardic with probable atrial flutter. She reports prior to surgery she was feeling normal. She denies history of arrhythmias. She reports electrical shock sensation at surgical incisions and pain on sides where fat was harvested. She denies chest pain, lightheadedness, racing heart, or any other associated symptoms. No fever, chills, chest pain, shortness of breath, palpitations, vomiting, diarrhea, urinary complaints, headache, lightheadedness. REVIEW OF SYSTEMS: Aside from elements discussed in the HPI, a comprehensive 10-point review of systems was reviewed and is negative. 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 Reports she has minimal pain. HEENT: Atraumatic. Eyes: No icterus, no injection. Mouth: moist mucous membranes. No erythema or lesions. Neck: supple with no adenopathy. CHEST: Dressed surgical incisions under both chests. LUNGS: Clear to auscultation bilaterally, no wheezes, rhonchi or rales. CARDIAC: Tachycardic, regular. No rubs, murmurs or gallops. ABDOMEN: Soft, mild tenderness along the lateral flank area secondary to liposuction with harvesting fat. Abdomen itself is nontender, nondistended, bowel sounds normal. BACK: No CVA tenderness. EXTREMITIES: No trauma. No edema. Range of motion is normal throughout. NEURO: Alert and oriented, grossly nonfocal. SKIN: Warm and dry, no rash. PSYCHIATRIC: Normal mentation, no agitation. ED Course: 12-LEAD EKG: Please see the full report in [facility]. My interpretation: Atrial flutter, rate 116 The patient presents from the [facility] [place] after she became hypotensive and tachycardic during surgery. EKG monitoring is suspicious for atrial flutter. She denies chest pain, aside from her incisions, denies lightheadedness, or any other associated symptoms. On exam she is tachycardic. Plan for EKG, CBC, basic metabolic panel, and troponin. Dr. Felix will consult. The patient was given 20 mg Diltiazem to control her ventricular rate. Ventricular rate slowed to 60s without obvious flutter waves on the monitor. Blood pressure diminished slightly. Patient received fluids. She remains in atrial flutter. Dr. Felix consult in the emergency department and advises admission. The patient agrees. Dr. Stanford will be the admitting physician. Labs demonstrate early renal insufficiency with a creatinine 1.4. Troponin is negative. MDM: Differential diagnosis for the patient's presenting complaint was considered including but not limited to acute coronary syndrome, atrial fibrillation, atrial flutter, electrolyte abnormalities, drug effects, anesthetic effects, dehydration, electrolyte abnormalities. - Data Points Laboratory Results: Laboratory Results 04/09/18 14:45 04/09/18 14:45 04/09/18 04/09/18 04/09/18 14:47 14:45 14:45 WBC RBC Hgb Hct MCV MCH MCHC RDW Plt Count MPV Neut % (Auto) Lymph % (Auto) Phillips % (Auto) Eos % (Auto) Baso % (Auto) Nucleat RBC Rel Count Absolute Neuts (auto) Absolute Lymphs (auto) Absolute Monos (auto) Absolute Eos (auto) Absolute Basos (auto) Absolute Nucleated RBC Immature Gran % Immature Gran # Sodium 132 mEq/L L mEq/L (135-145) Potassium 4.7 mEq/L mEq/L (3.3-5.0) Chloride 105 mEq/L mEq/L (97-110) Carbon Dioxide 19 mEq/l L mEq/l (22-31) Anion Gap 8 mEq/L mEq/L (8-16) BUN 44 mg/dL H mg/dL (7-23) Creatinine 1.2 mg/dL H mg/dL (0.6-1.0) Estimated GFR 46 Glucose 89 mg/dL mg/dL (70-100) Calcium 8.6 mg/dL mg/dL (8.5-10.4) POC Troponin I 0.00 ng/mL ng/mL (0.00-0.08) TSH Pending 04/09/18 14:45 WBC 4.92 10^3/uL 10^3/uL (3.80-9.50) RBC 3.55 10^6/uL L 10^6/uL (4.18-5.33) Hgb 12.1 g/dL L g/dL (12.6-16.3) Hct 36.4 % L % (38.0-47.0) MCV 102.5 fL H fL (81.5-99.8) MCH 34.1 pg pg (27.9-34.1) MCHC 33.2 g/dL g/dL (32.4-36.7) RDW 12.8 % % (11.5-15.2) Plt Count 169 10^3/uL 10^3/uL (150-400) MPV 10.2 fL fL (8.7-11.7) Neut % (Auto) 62.4 % % (39.3-74.2) Lymph % (Auto) 25.0 % % (15.0-45.0) Phillips % (Auto) 11.2 % % (4.5-13.0) Eos % (Auto) 0.6 % % (0.6-7.6) Baso % (Auto) 0.4 % % (0.3-1.7) Nucleat RBC Rel Count 0.0 % % (0.0-0.2) Absolute Neuts (auto) 3.07 10^3/uL 10^3/uL (1.70-6.50) Absolute Lymphs (auto) 1.23 10^3/uL 10^3/uL (1.00-3.00) Absolute Monos (auto) 0.55 10^3/uL 10^3/uL (0.30-0.80) Absolute Eos (auto) 0.03 10^3/uL 10^3/uL (0.03-0.40) Absolute Basos (auto) 0.02 10^3/uL 10^3/uL (0.02-0.10) Absolute Nucleated RBC 0.00 10^3/uL 10^3/uL (0-0.01) Immature Gran % 0.4 % % (0.0-1.1) Immature Gran # 0.02 10^3/uL 10^3/uL (0.00-0.10) Sodium Potassium Chloride Carbon Dioxide Anion Gap BUN Creatinine Estimated GFR Glucose Calcium POC Troponin I TSH Medications Given: Discontinued Medications Diltiazem HCl (Cardizem 25 Mg/5 Ml Vial) 20 mg IVP EDNOW ONE Stop: 04/09/18 14:54 Last Admin: 04/09/18 15:05 Dose: 20 mg Sodium Chloride (Ns) 1,000 mls @ 0 mls/hr IV ONCE ONE; Wide Open PRN Reason: Protocol Stop: 04/09/18 15:15 Last Admin: 04/09/18 15:14 Dose: 1,000 mls Point of Care Test Results: Chemistry 04/09/18 14:47 POC Troponin I 0.00 ng/mL ng/mL (0.00-0.08) General Time Seen by Provider: 04/09/18 14:21 Initial Vital Signs: Initial Vital Signs Temperature (C) 37.2 C 04/09/18 14:42 Heart Rate 78 04/09/18 14:42 Respiratory Rate 15 04/09/18 14:42 Blood Pressure 107/69 04/09/18 14:42 O2 Sat (%) 98 04/09/18 14:42 O2 Delivery Mode Room Air O2 (L/minute) 1 Allergies/Adverse Reactions: cephalexin monohydrate [From Keflex] Allergy (Intermediate, Verified 11/14/15 13 :41) FAMILY HISTORY OF ALLERGIES dexamethasone [Dexamethasone] Allergy (Intermediate, Verified 11/14/15 13:41) BODY ACHES Home Medications: Medication Instructions Recorded Lisinopril [Zestril 40 mg (*)] 40 mg PO DAILY 12/15/12 Ibuprofen [Motrin (*)] 400 mg PO Q6HRS PRN tab 08/19/17 Hydrocodone/Acetaminophen [[place] 1 each PO Q4-6PRN PRN 04/10/18 7.5-325 Tablet] Levothyroxine [Synthroid 112 mcg 112 mcg PO DAILY06 04/10/18 (*)] Metoprolol Succinate Xr [Toprol Xl 50 mg PO DAILY 04/10/18 50 mg (*)] Departure - Departure [facility] Clinical Impression: Atrial flutter Qualifiers: Atrial flutter type: unspecified Qualified Code(s): I48.92 - Unspecified atrial flutter Hypotension Qualifiers: Hypotension type: other hypotension type Qualified Code(s): I95.89 - Other hypotension Condition: Fair Report Scribed for: Cuca Rankin Report Scribed by: Emily Cardoso Date of Report: 04/09/18 Time of Report: 15:39 Physician Review and Approval Statement: Portions of this note were transcribed by a medical scientific liaison. I personally performed a history, physical exam, medical decision making, and confirmed accuracy of information the transcribed note.
--- NOTE | 2018-04-09 14:51 | CPEKG ---
Heart Rate: 116 RR Interval: 517 P-R Interval: 110 QRSD Interval: 88 QT Interval: 368 QTC Interval: 512 P [place]: -72 QRS [place]: 11 T Wave [place]: 42 EKG Severity - ABNORMAL ECG - EKG Impression: atrial flutter EKG Impression: PROBABLE LEFT ATRIAL ABNORMALITY EKG Impression: MINIMAL ST DEPRESSION, INFERIOR LEADS EKG Impression: PROLONGED QT INTERVAL Electronically Signed By: Cuca Rankin 09-Apr-2018 15:03:56
[2018-04-09 14:52] LABS: PLATELET COUNT 169 10^3/uL (150-400)
[2018-04-09] MEDS ORDERED: DILTIAZEM 25 MG/5 ML VIAL IVP ONE (14:53)
[2018-04-09] MEDS ORDERED: NS 1,000 ML IV ONE (15:14)
[2018-04-09] MEDS ORDERED: ACETAMINOPHEN 325 MG TAB PO PRN (16:03)
[2018-04-09] MEDS ORDERED: ONDANSETRON 4 MG/2 ML VIAL IVP PRN (16:03)
[2018-04-09] MEDS ORDERED: ONDANSETRON DISINTEGRATING 4 MG TAB PO PRN (16:03)
[2018-04-09] MEDS ORDERED: NS 1,000 ML IV SCH (16:15)
--- NOTE | 2018-04-09 16:29 | GCON ---
[f rep st] CONSULTATION REASON FOR CONSULTATION: A 58-year-old woman. I have been asked to do a cardiovascular consultation for her atrial arrhythmias. HISTORY OF PRESENT ILLNESS: Patient was getting a breast reconstruction today at [facility] on [address] [place] [address], near [place], and developed a supraventricular tachycardia. It was atr ial flutter. She was given an aspirin suppository and brought to the emergency room. She has atrial flutter with a controlled ventricular response in the 80s at this point in time. She does not have any chest pain, except her excisional chest pain. In the past before the surgery, she was having absolutely no chest pain at all, jaw pain, or arm pain. Chronically, she does not have sh ortness of breath or other cardiovascular complaints. She has not had atrial arrhythmias in the past . She has not had fever, chills, or cough. She is not having nausea or vomiting. She has had no ne urologic symptoms. She has no focal neurologic issues. She has a history of inflammatory breast cancer. She has had chemotherapy, radiation therapy. She s ees Dr. José Antonio Dale. She had a mastectomy in 2009 and she is getting worked on the left side at [facility] s time. Patient has no history of atrial fibrillation, atrial arrhythmias. CARDIAC RISK FACTORS: Positive for hypertension and for obesity. Cardiac risk factors are negative for diabetes mellitus, hyperlipidemia, hyperuricemia, known coronary artery disease, family history o f coronary artery disease in early age or smoking history. REVIEW OF SYSTEMS: A 10-point review of systems negative except as noted above and as noted in this record and in the other records that are available here right now. PAST MEDICAL HISTORY: Remote history includes complicated reconstructions after radiation, mastectom y. History includes hypothyroidism. ALLERGIES: Cephalexin. HOME MEDICINES: Include lisinopril, metoprolol, paroxetine, zolpidem, levothyroxine, acetaminophen, ibuprofen, MiraLAX, Senokot, oxycodone. FAMILY HISTORY: She has no family history of premature coronary disease. No history of unexplained sudden at a young age. SOCIAL HISTORY: She lives with a roommate, who is healthy. She herself has 1 child, who is healthy. 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 She does not smoke. She was born [place], [place]. PHYSICAL EXAMINATION: VITAL SIGNS: Blood pressure is 109/72, heart rate 64, respiratory rate 14. S he is lying comfortably in a hospital bed and she is afebrile. HEENT: Pupils are equal and reactive . CARDIOVASCULAR: S1, S2. Soft systolic murmur. No diastolic murmur. PULMONARY: Breath sounds a re clear on the front. We cannot hear the back. She is in great deal of pain from her surgical proc edure. ABDOMEN: Soft, nontender. EXTREMITIES: Reveal no edema. SKIN: She has dressings over her chest from the surgical procedure that was done. NEUROLOGICAL: She is intact. PSYCH: No obvious anxiety or depression. LABORATORY DATA: White count 4.92, hematocrit 36, platelets are 169. Sodium is 132, potassium 4.7, chloride 105, CO2 19, BUN 44, creatinine 1.2. She has atrial flutter. Her EKG shows on admission atrial flutter, diffuse nonspecific ST-T changes and a heart rate response of 116. ASSESSMENT AND PLAN: 1. Atrial flutter. 2. Status post left breast reconstruction. 3. Inflammatory breast cancer. The patient because of inflammatory breast cancer and all therapy jose grewal has had for that and revisions is now having surgery to do a breast reconstruction. During surgery , she developed atrial flutter. She was mildly hypotensive. Her blood pressure is totally stable at this point and was never significantly low. She tolerated all this very well, was brought to the em ergency room, where now she is in atrial flutter with a controlled ventricular response. She should do very well and hopefully cardiovert on her own. We would like to put her on full anticoagulation. However, she has just had a big surgical procedure today and I have talked to the surgical service a nd they would prefer not to use full anticoagulation, but rather go with aspirin, so we will put her on 81 mg of aspirin daily, and when she is stable for full anticoagulation, we could possibly do full anticoagulation and then cardiovert her. I would not want to cardiovert her on aspirin alone. Maine richards, I do believe that this is related to surgery and the chemicals she received in the whole procedu re and she probably will cardiovert on her own. So, our plan will be to give her aspirin, watch her overnight in the hospital, rate control her as needed and follow along. She has multiple cardiovascu lar risk factors including hypertension, obesity, and she needs to work on losing weight and exercisi ng, but that is obviously not going to happen right now. 4. Hypertension. 5. Obesity. We will follow along with these problems over time. All her questions have been answered. At this point, I will follow along with you. /[id number]/MODL
--- NOTE | 2018-04-09 16:40 | GHP ---
[f rep st] HISTORY AND PHYSICAL DATE OF ADMISSION: 04/09/2018 CHIEF COMPLAINT: Hypotensive during surgery. HISTORY OF PRESENT ILLNESS: This is a 58-year-old female with a history of breast cancer, who was br ought over by ambulance after a breast reconstruction surgery today. She was treated in 2009 for tri ple negative breast cancer by Dr. Dale. She has had a total of 19 surgeries prior to today. Her last was in 2013. She had no issues with those previous surgeries. Today she was having a surgery f or breast reconstruction by Dr. Lakhani. Intraoperatively, she was noted to be hypotensive and tachy cardic. There was concern for an acute coronary event at the time. Surgery was emergently stopped, and she was transferred to [facility]. Here, she was found to be in atrial flutter. She is not and has never had any chest pain. She does not get any shortness of breath. She has nev er had syncope or significant lower extremity edema. She has had occasional issues in the past where she felt that her heart was racing. She has never had a cardiac workup before. PAST MEDICAL/SURGICAL HISTORY: 1. Triple negative breast cancer, status post treatment in [address] Dale, status post multiple breast surgeries. 2. Hypertension. 3. Depression. 4. Obesity. 5. Hypothyroid. MEDICATIONS: Please see medication reconciliation. ALLERGIES: Keflex and dexamethasone. SOCIAL HISTORY: She drinks alcohol about 4 days a week. She quit smoking. FAMILY HISTORY: Negative for breast cancer. REVIEW OF SYSTEMS: A 10-point review of systems is conducted and is negative, except per HPI. PHYSICAL EXAM: VITAL SIGNS: Blood pressure 106/64, heart rate 62, respiration rate 17, sating 98% o n 2 L. Temperature is 37.2. GENERAL: The patient is a pleasant female who is resting comfortably. She is in no acute distress. HEENT: Shows her to be normocephalic, atraumatic. CARDIOVASCULAR: E xam shows her to be irregularly irregular. There is a 1/6 systolic murmur. PULMONARY: Exam shows l ungs are clear to auscultation bilaterally. ABDOMEN: Soft. She is nontender and nondistended. SKI N: Exam shows no rash. : Exam shows no Rodrigez. NEUROLOGIC: Exam shows her to be alert and orien david x3. She is moving all extremities. PSYCHIATRIC: Exam shows a normal mood and affect. LABS: White count is 12.1. MCV is 102. INR is 0.9. Sodium is 132. Creatinine is 1.2. Bicarb is 1 9. DATA: 1. I discussed this with Dr. Rankin. Will admit to PCU. 2. I personally discussed with Dr. Felix. 3. I personally viewed and interpreted her EKG. This shows atrial flutter. The ventricular rate is 116. She has inferior ST depressions. IMPRESSION/PLAN: 1. Atrial fibrillation with rapid ventricular response: This is a new diagnosis. Likely caused her hypotension and tachycardia during surgery. Dr. Lakhani has requested that she not be anticoagulate d. He has cleared her for an aspirin. She received diltiazem 20 in the emergency department with mi ld hypotension but significant improvement in her heart rate to around 70 to 80 beats per minute. I will discuss with Dr. Felix whether or not we could give her oral metoprolol. She will not likely b e a cardioversion candidate given the difficulty with anticoagulation postoperatively. I think we sh ould aim for rate control. I have ordered an echocardiogram as well. 2. Breast cancer, status post reconstruction: She has completed her treatment. She has not seen Dr Douglas Dale for a few years. 3. Hypertension: Will hold her antihypertensives in the setting of her low blood pressures. 4. Pain control: This is all due to her surgery. Will provide her options. May need to hold if he r blood pressure will not tolerate this. 5. Hypothyroid: Will check a TSH. 6. Anemia: This is stable. 7. Prerenal azotemia: Will provide her with IV fluids and recheck this in the morning. 8. Will trend her troponins. /[id number]/MODL
[2018-04-09] MEDS: OXYCODONE/APAP 5/325 TAB PO PRN ×2 (17:57→22:02)
[2018-04-09] MEDS: METOPROLOL TARTRATE 25 MG TAB PO SCH (20:18)
[2018-04-10 04:28] LABS: PLATELET COUNT 159 10^3/uL (150-400)
[2018-04-10] MEDS: OXYCODONE/APAP 5/325 TAB PO PRN ×4 (04:31→14:31)
[2018-04-10] MEDS: ASPIRIN EC 81 MG TAB PO SCH (08:55)
[2018-04-10] MEDS: METOPROLOL TARTRATE 25 MG TAB PO SCH (08:55)
[2018-04-10] MEDS ORDERED: MIDAZOLAM 2 MG/2 ML VIAL IVP ONE (09:17)
[2018-04-10] MEDS ORDERED: ATROPINE SULFATE 1 MG/10 ML SYR IVP ONE (09:17)
[2018-04-10] MEDS ORDERED: fentaNYL 100 MCG/2 ML INJ IVP ONE (09:17)
[2018-04-10] MEDS ORDERED: NS 500 ML IV ONE (09:17)
[2018-04-10] MEDS ORDERED: BENZOCAINE UNIT DOSE SPRAY HURRICAINE MM ONE (09:17)
--- NOTE | 2018-04-10 09:53 | ECHO ---
[email or web address] [id number] Main: [phone] Fax: Transthoracic Echocardiogram Name: RODNEY PARRY MR#: [id number] Study Date: 04/10/2018 Study Time: 08:14 AM Date of : 1960 Age: 58 year(s) Height: 172.7 cm (68 in.) Weight: 95.26 kg (210 lb.) BSA: 2.09 m2 Gender: Female Examination: Limited Echo Indication: Atrial Flutter Image Quality: Contrast: Requested by: Kade Stanford BP: 115 mmHg/55 mmHg Heart Rate: Rhythm: Indication: Atrial Flutter Procedure Staff Cad Cam Programmer: Estefany Douglas RDCS Reading Physician: Rajan Felix MD Requesting Provider: Conclusions: Normal global systolic LV function. The ejection fraction is estimated to be 60-65 %. The left atrium is normal in size. Mild mitral valve regurgitation is present. The aortic valve is normal in appearance. Mild tricuspid regurgitation is present. The pulmonary artery pressure is normal. The pulmonic valve is normal in appearance. Limited views - left breast reconstruction yesterday.. No previous Measurements: Chambers Valvular Assessment AV/MV Valvular Assessment TV/PV Normal Normal Normal Name Value Range Name Value Range Name Value Range Ao Tiffanie (MM): 3.5 cm (2.2 cm-3.7 TR Vmax: 1.94 mm/s ( - ) cm) TR PGmax: 15 mmHg ( - ) EF Range: 60-65 % syst. PAP: 20 mmHg ( - ) Continued Measurements: Valvular Assessment TV/PV Name Value CVP (est.): 5 mmHg Additional Vessels Name Value Patient: RODNEY PARRY Study Date: 04/10/2018 Page 1 of 2 08:14 AM Ao Ascendin.4 cm Findings: Left Ventricle: Normal global systolic LV function. The ejection fraction is estimated to be 60-65 %. Left Atrium: The left atrium is normal in size. Mitral Valve: The mitral valve is normal in appearance. Mild mitral valve regurgitation is present. Aortic Valve: The aortic valve is normal in appearance. Tricuspid Valve: The tricuspid valve appears normal. Mild tricuspid regurgitation is present. The pulmonary artery pressure is normal. Pulmonic Valve: The pulmonic valve is normal in appearance. Pericardium: No pericardial effusion. Exam Comments: Limited views - left breast reconstruction yesterday.. (No Signature Object) Patient: RODNEY PARRY Study Date: 04/10/2018 Page 2 of 2 08:14 AM [id number]
--- NOTE | 2018-04-10 10:25 | CPEKG ---
Heart Rate: 82 RR Interval: 732 QRSD Interval: 74 QT Interval: 372 QTC Interval: 435 QRS Evarts: -2 T Wave Evarts: 45 EKG Severity - ABNORMAL ECG - EKG Impression: ATRIAL FLUTTER, A-RATE 245 EKG Impression: PAIRED VENTRICULAR PREMATURE COMPLEXES EKG Impression: LOW VOLTAGE THROUGHOUT Electronically Signed By: Sukhdev Wells 10-Apr-2018 13:24:44
[2018-04-10] MEDS ORDERED: METOPROLOL TARTRATE 25 MG TAB PO ONE ×2 (10:45→15:42)
--- NOTE | 2018-04-10 13:12 | HOSPPROG ---
Hospitalist Progress Note Assessment/Plan: A fib with RVR - new onset ileana-operatively. TSH nl. Echo with mild MR. Deferring cardioversion as Dr. Lakhani, her surgeon, wishes to avoid anticoagulation for 4-5 days post-op. Goal is for rate control. She takes Toprol XL 50 mg daily at home. Receiving Metoprolol tartrate 50 mg BID here. Cont ASA for stroke prevention. Discussed with Dr. Felix. Breast cancer - s/p multiple breast surgeries, most recently 04/09/2018, POD #1. Surgery aborted due to hypotension / tachycardia / rapid a fib. Pain is controlled. Hypertension - well controlled, monitor for hypotension with increased BB Hypothyroidism - TSH nl, cont levothyroxine Hyponatremia - Na normalized with NS, will dc fluids ROSANA - likely pre-renal, Cr 1.2->1.0 after IVFs Anemia - chronic, stable. No e/o active bleeding. Outpt f/u. Full code Dispo - change to inpt as needs ongoing management and rate control for A fib. D/C home in am if rate controlled or converts back to NSR. Subjective: Pt feels ok, a bit anxious. Pain is controlled. No CP or SOB. Objective: Vital Signs Temp Pulse Resp BP Pulse Ox 36.9 C 127 H 14 112/85 H 97 04/10/18 11:45 04/10/18 11:45 04/10/18 11:45 04/10/18 11:45 04/10/18 11:45 Laboratory Results 04/10/18 04:05 04/10/18 04:05 04/09/18 04/10/18 04/11/18 05:59 05:59 05:59 Intake Total 1475 Output Total 1300 Balance 175 - Physical Exam Constitutional: no apparent distress Eyes: PERRL Ears, Nose, Mouth, Throat: moist mucous membranes Cardiovascular: irregularly irregular, tachycardia Respiratory: no respiratory distress, clear to auscultation Gastrointestinal: normoactive bowel sounds, soft, non-tender abdomen Skin: warm Musculoskeletal: full muscle strength Neurologic: AAOx3 Psychiatric: interacting appropriately ICD10 Worksheet Patient Problems: Problems Problem Status Onset Atrial flutter Acute Hypotension Acute Neoplasm of breast Active Closed comminuted right humeral fracture Acute History of fall Acute Left knee sprain Acute Right foot sprain Acute
[2018-04-10] MEDS ORDERED: IBUPROFEN 200 MG TAB PO PRN (13:16)
[2018-04-10] MEDS ORDERED: ACETAMINOPHEN PO PRN (13:16)
[2018-04-10] MEDS ORDERED: HYDROCODONE PO PRN (13:16)
--- NOTE | 2018-04-10 14:03 | ASMTCASEMG ---
Living Arrangements What is your living Answers: Alone arrangement? Who do you live with? Type Of Residence What kind of residence do Answers: House you live in? Discharge Plan Comments Coordination Status Comments Notes: Pts case discussed in tx rounds. Pt is a 58 y/o female admitted for atrial flutter, hypotension and post breast surgery. Pt had an echo today. Pt will most likely d/c independent when medically stable. No therapies ordered at this time. CM available for changes. Plan: Independent Date Signed: 04/10/2018 02:02 PM Electronically Signed By:POLLO Gonzalez
--- NOTE | 2018-04-10 15:10 | PDMN ---
Medical Necessity Medical necessity: Change to IP, as of 04/10/18, per MD; los >2 mn for ongoing management of AFIB w/RVR s/p breast reconstruction surgery POD #1; surgery aborted due to hypotension/tachycardia; admit for further cardiac monitoring & rate control/med management
[2018-04-10] MEDS: HYDROCODONE/APAP 10/325 TAB PO PRN (19:52)
[2018-04-10] MEDS: METOPROLOL TARTRATE 50 MG TAB PO SCH (19:52)
[2018-04-10 20:56] LABS: INR 0.92 (0.83-1.16); PROTIME(PATIENT) 12.6 SEC (12.0-15.0)
[2018-04-11] MEDS: HYDROCODONE/APAP 10/325 TAB PO PRN ×4 (00:33→20:03)
[2018-04-11] MEDS: LEVOTHYROXINE 112 MCG TAB PO SCH (06:05)
[2018-04-11] MEDS: METOPROLOL TARTRATE 50 MG TAB PO SCH (08:47)
[2018-04-11] MEDS: ASPIRIN EC 81 MG TAB PO SCH (08:47)
[2018-04-11] MEDS ORDERED: METOPROLOL TARTRATE 25 MG TAB PO ONE (10:27)
[2018-04-11] MEDS ORDERED: BISACODYL 10 MG SUPP PR PRN (13:43)
[2018-04-11] MEDS ORDERED: LACTULOSE 20 GM/30 ML UDCUP PO PRN (13:43)
[2018-04-11] MEDS ORDERED: POLYETHYLENE GLYCOL 3350 17 GM PKT PO PRN (13:43)
[2018-04-11] MEDS ORDERED: MAGNESIUM HYDROXIDE 30 ML UDCUP PO PRN (13:43)
[2018-04-11] MEDS: SENNOSIDES/DOCUSATE SODIUM TAB PO SCH ×2 (16:05→20:03)
--- NOTE | 2018-04-11 18:01 | HOSPPROG ---
Hospitalist Progress Note Assessment/Plan: Ms Patton is a 58yo F with history of breast cancer s/p multiple reconstructive surgeries, HTN, hypothyroidism who was admitted immediately after reconstructive surgery 04/09 for new onset atrial fibrillation. 1. Atrial fibrillation with RVR: Suspect precipitant adrenergic drive from surgery. Rate still not controlled and consistently >130 while at rest. Will increase metoprolol to 100mg BID. Deferring cardioversion as unable to anticoagulate with recent surgery. Continue aspirin 81mg daily. 2. Exertional hypoxemia: Noted on ambulation today. No prior significant pulmonary history. No s/s infection. Will repeat CXR to evaluate for pulmonary edema. Lower concern for PE (doesn't have active cancer). Will re-evaluate with better rate control. May need supplemental O2 at discharge. 3. HTN: Well controlled, monitor for hypotension with increased BB. 4. Hypothyroidism: TSH wnl. Continue LT4. 5. Hyponatremia: Mild. Na initially normalized with fluids. Will monitor for now. 6. ROSANA: Resolved. 7. Normocytic anemia: Chronic, stable. No e/o active bleeding. Outpatient follow up. VTE ppx: low risk, SCDs Diet: regular Code: FCFT Disposition: will remain inpatient for ongoing management of afib with RVR and hypoxemia Subjective: Feeling well. Denies shortness of breath, palpitations, dizziness, chest pain. Wanting to go home. Objective: Vital Signs Temp Pulse Resp BP Pulse Ox 36.7 C 81 17 122/82 H 95 04/11/18 12:00 04/11/18 15:47 04/11/18 15:47 04/11/18 15:47 04/11/18 15:47 Laboratory Results 04/11/18 03:37 04/10/18 20:38 04/10/18 04/11/18 04/12/18 05:59 05:59 05:59 Intake Total 1745 Balance 1745 PT 12.6 SEC (12.0-15.0) 04/10/18 20:38 INR 0.92 (0.83-1.16) 04/10/18 20:38 - Physical Exam Constitutional: no apparent distress, appears nourished, not in pain Eyes: PERRL, anicteric sclera, EOMI Ears, Nose, Mouth, Throat: moist mucous membranes, hearing normal, ears appear normal, no oral mucosal ulcers Cardiovascular: irregularly irregular, tachycardia, edema (mild pitting edema of BLE to ankles), No JVD Respiratory: no respiratory distress, no rales or rhonchi, clear to auscultation Gastrointestinal: normoactive bowel sounds, soft, non-tender abdomen, no palpable masses Skin: no rashes or abrasions, no fluctuance, no induration Musculoskeletal: full muscle strength, no muscle tenderness, normal joint ROM Neurologic: AAOx3, sensation intact bilaterally Psychiatric: interacting appropriately, not anxious, not encephalopathic, thought process linear ICD10 Worksheet Patient Problems: Problems Problem Status Onset Atrial flutter Acute Hypotension Acute Neoplasm of breast Active Closed comminuted right humeral fracture Acute History of fall Acute Left knee sprain Acute Right foot sprain Acute
[2018-04-11] MEDS: METOPROLOL TARTRATE 100 MG TAB PO SCH (20:03)
[2018-04-12] MEDS: HYDROCODONE/APAP 10/325 TAB PO PRN ×2 (03:45→09:37)
[2018-04-12] MEDS: LEVOTHYROXINE 112 MCG TAB PO SCH (06:15)
[2018-04-12] MEDS: METOPROLOL TARTRATE 100 MG TAB PO SCH (09:37)
[2018-04-12] MEDS: ASPIRIN EC 81 MG TAB PO SCH (09:38)
[2018-04-12] MEDS: SENNOSIDES/DOCUSATE SODIUM TAB PO SCH (09:38)
--- NOTE | 2018-04-12 12:45 | ASDISCHSUM ---
Discharge Information Plan Status:Home with No Needs Medically Cleared to Leave:04/12/2018 Discharge Date:04/12/2018 CM D/C Disposition:Home, Routine, Self-Care ADT D/C Disposition:Home, Routine, Self-Care Projected Discharge Date:04/12/2018 Transportation at D/C:Family Discharge Delay Reason: Follow-Up Date:04/12/2018 Discharge Slot: Final Diagnosis: Placement Information Patient Contact Information Contact Name:RAFY Relationship:Friend Address:[address] Home Phone: City:[place] Alternate Phone: State/Zip Code:[place] [address] Email: Financial Information Financial Class:Medicaid Primary Plan Desc:MEDICA[employer] HEALTH FIRST PRICING COORDINATOR Primary Plan Number:[id number] Secondary Plan Desc: Secondary Plan Number: Assessment Information LACE LACE Length of stay for Answers: 1 day current admission Comorbidities - select Answers: Any tumor (including all that apply lymphoma or leukemia) Other Notes: HTN; Hypothyroidism # of Emergency department Answers: 1-2 visits in the last 6 months Social determinants Answers: Mental health diagnosis (anxiety, depression, pers onality disorders, etc.) Score: 8 Date Signed: 04/12/2018 12:43 PM Electronically Signed By:Nya Smith RN [facility] Initial CM Assessment Living Arrangements What is your living Answers: Alone arrangement? Who do you live with? Type Of Residence What kind of residence do Answers: House you live in? Discharge Plan Comments Coordination Status Comments Notes: Pts case discussed in tx rounds. Pt is a 58 y/o female admitted for atrial flutter, hypotension and post breast surgery. Pt had an echo today. Pt will most likely d/c independent when medically stable. No therapies ordered at this time. CM available for changes. Plan: Independent Date Signed: 04/10/2018 02:02 PM Electronically Signed By:POLLO Gonzalez Intervention Information
--- NOTE | 2018-04-12 12:48 | ASMTCMCOM ---
CM Note CM Note Notes: Medically cleared for discharge to home. No needs identified at this time. CM available should needs arise. Plan: Home Independently. Date Signed: 04/12/2018 12:48 PM Electronically Signed By:Nya Smith RN
[2018-04-12 14:50] VITALS: BP 128/70
--- NOTE | 2018-04-12 16:55 | PDDCSUM ---
Discharge Summary Discharge Summary: Date of Admission: 04/09/2018 Date of Discharge: 04/12/2018 Consultants: cardiology Procedures: breast reconstructive surgery, TTE Brief Hospital Course by Diagnosis: 1. Atrial fibrillation with RVR: New diagnosis. Precipitated by adrenergic drive from surgery. TTE without valvular disease. Rate controlled with beta blockade. Did not anticoagulate due to recent surgical intervention and discharged on aspirin. Cardiology deferred electrical cardioversion until adequately anticoagulated; plan to follow up with surgeon to determine if/when can start. 2. Exertional hypoxemia: Resolved prior to discharge. Likely related to above. 3. HTN: BP controlled on metoprolol. Discontinued lisinopril due to hypotension. 4. Triple negative breast cancer: [place] [address] [place] and multiple breast reconstructive surgeries. 5. Hypothyroidism: TSH nl, continue synthroid. 6. Hyponatremia: Mild. Na normalized with fluids. 7. ROSANA: Resolved. 8. Normocytic anemia: Chronic, stable. No e/o active bleeding. Needs outpatient follow up. Tests Pending at Discharge: none Items for Follow Up: 1. Follow up with surgeon in 3 days to determine if able to restart systemic anticoagulation. 2. Follow up with cardiology to determine management plan of afib (rate control vs. CITLALI-guided cardioversion after appropriate duration of anticoagulation). 3. Work up of anemia, likely with endoscopy. Medications at Discharge: Please refer to EMR for complete list. Changes during this hospitalization include discontinuation of metoprolol XL 50mg daily and lisinopril 10mg daily and addition of metoprolol tartrate 100mg BID and aspirin 81mg daily.
== END 2018-04-12 13:09 | disposition home or self-care (01) | DRG 201 ==
LOC: EDUNIT# → F2W 16:49 → OBSVTOIN 04-10 13:16
PROVIDERS: ADMIT Student in an Organized Health Care Education/Training Program; ATTEND Student in an Organized Health Care Education/Training Program
DX: I48.91 Unspecified atrial fibrillation (principal); N17.9 Acute kidney failure, unspecified; R09.02 Hypoxemia; E03.9 Hypothyroidism, unspecified; E87.1 Hypo-osmolality and hyponatremia; E86.9 Volume depletion, unspecified; I10 Essential (primary) hypertension; D64.9 Anemia, unspecified; E66.9 Obesity, unspecified; Z85.3 Personal history of malignant neoplasm of breast; Z90.10 Acquired absence of unspecified breast and nipple
CPT/HCPCS: 84484-PO; 96374; G0378; J2270

== ENCOUNTER 2018-05-19 06:55 | Day surgery (SDC) | payer MEDICAID ==
[2018-05-19] MEDS ORDERED: fentaNYL 100 MCG/2 ML INJ IVP ONE (06:58)
[2018-05-19] MEDS ORDERED: BENZOCAINE UNIT DOSE SPRAY HURRICAINE MM ONE (06:58)
[2018-05-19] MEDS ORDERED: NS 500 ML IV ONE (06:58)
[2018-05-19] MEDS ORDERED: ATROPINE SULFATE 1 MG/10 ML SYR IVP ONE (06:58)
[2018-05-19] MEDS ORDERED: MIDAZOLAM 2 MG/2 ML VIAL IVP ONE (06:58)
--- NOTE | 2018-05-19 09:17 | CPEKG ---
Test Reason : OPEN Blood Pressure : / mmHG Vent. Rate : 061 BPM Atrial Rate : 061 BPM P-R Int : 203 ms QRS Dur : 075 ms QT Int : 446 ms P-R-T Axes : 057 -07 047 degrees QTc Int : 450 ms Sinus rhythm Borderline prolonged SC interval Confirmed by Kishan Pedraza ([id number]) on 05/19/2018 9:16:54 AM Referred By: Confirmed By:Kishan Pedraza
== END 2018-05-19 08:01 | disposition home or self-care (01) ==
LOC: FCATH 06:55
PROVIDERS: ATTEND Internal Medicine Cardiovascular Disease
DX: I48.91 Unspecified atrial fibrillation (principal); Z53.09 Procedure and treatment not carried out because of other contraindication; Z85.3 Personal history of malignant neoplasm of breast; I10 Essential (primary) hypertension; E03.9 Hypothyroidism, unspecified; Z98.82 Breast implant status; Z87.891 Personal history of nicotine dependence

== ENCOUNTER 2018-07-29 06:53 | Observation (INO) | payer MEDICAID ==
[2018-07-29] MEDS ORDERED: NS 1,000 ML IV ONE (07:01)
[2018-07-29 07:44] LABS: PLATELET COUNT 206 10^3/uL (150-400)
[2018-07-29 07:52] LABS: INR 1.01 (0.83-1.16); PROTIME(PATIENT) 13.5 SEC (12.0-15.0)
[2018-07-29] MEDS ORDERED: LIDOCAINE 1% 300 MG/30 ML SDV ONE (08:02)
[2018-07-29] MEDS ORDERED: HEPARIN 10,000 UNIT/10 ML MDV (1,000 UNIT/ML) ONE (08:02)
[2018-07-29] MEDS ORDERED: BUPIVACAINE 0.75% 10 ML SDV ONE (08:03)
[2018-07-29] MEDS ORDERED: ISOPROTERENOL HCL/D5W 0.2 MG/50 ML BAG IV ONE (08:03)
[2018-07-29] MEDS ORDERED: ONDANSETRON 4 MG/2 ML VIAL IVP PRN ×2 (08:12→11:07)
[2018-07-29] MEDS ORDERED: fentaNYL 100 MCG/2 ML INJ IVP PRN ×2 (08:12→11:07)
[2018-07-29] MEDS ORDERED: ALBUTEROL 3 ML DEYVIAL IH PRN ×2 (08:12→11:07)
[2018-07-29] MEDS ORDERED: NALOXONE HCL 0.4 MG/ML INJ IVP PRN ×2 (08:12→11:07)
--- NOTE | 2018-07-29 08:12 | PDANEPAE ---
ANE Past Medical History - Cardiovascular History Hx Hypertension: Yes - Pulmonary History Hx Oxygen in Use at Home: No Hx Sleep Apnea: No - Endocrine History Hx Diabetes: No - Chronic Pain History Chronic Pain: Yes ANE Review of Systems Review of Systems: ANE Patient History - Allergies Allergies/Adverse Reactions: cephalexin monohydrate [From Keflex] Allergy (Intermediate, Verified 11/14/15 13 :41) FAMILY HISTORY OF ALLERGIES dexamethasone [Dexamethasone] Allergy (Intermediate, Verified 11/14/15 13:41) BODY ACHES - Home Medications Home Medications: Levothyroxine [Synthroid 112 mcg (*)] 112 mcg PO DAILY06 04/10/18 [Last Taken 08:00] Amiodarone HCl [Pacerone] 100 mg PO DAILY 07/29/18 [Last Taken 07/24/18] Enoxaparin [Lovenox 100 MG (*)] 100 mg SQ BID 07/29/18 [Last Taken 07/28/18 21: 00] Rivaroxaban [Xarelto 10mg (*)] 10 mg PO DAILY 07/29/18 [Last Taken 07/28/18 21: 00] - Smoking Hx Smoking Status: Former smoker ANE Labs/Vital Signs - Labs Result Diagrams: 07/29/18 07:15 07/29/18 07:15 - Vital Signs Height: 175 cm Weight: 113.4 kg ANE Physical Exam - Airway Neck exam: decreased ROM Mallampati Score: Class 3 Mouth exam: poor dentition - Pulmonary Pulmonary: no respiratory distress - Cardiovascular Cardiovascular: regular rate and rhythym - ASA Status ASA Status: III ANE Anesthesia Plan Anesthesia Plan: general endotracheal anesthesia
--- NOTE | 2018-07-29 08:25 | PDGENHP ---
History & Physical Chief Complaint: symptomatic afl Relevant Physical Exam: [id number]. cta. ao3 Cardiorespiratory Assessment: for afl ablation
[2018-07-29] MEDS ORDERED: MIDAZOLAM 2 MG/2 ML VIAL ONE (08:27)
[2018-07-29] MEDS ORDERED: PROPOFOL/EMULSION 500 MG/50 ML BOTTLE IV ONE ×3 (08:27→10:40)
[2018-07-29] MEDS ORDERED: fentaNYL 100 MCG/2 ML INJ ONE (08:27)
[2018-07-29] MEDS ORDERED: ROCURONIUM 100 MG/10 ML VIAL ONE (08:33)
[2018-07-29] MEDS ORDERED: LIDOCAINE 2% 100 MG/5 ML SYR ONE (08:33)
[2018-07-29] MEDS ORDERED: MIDAZOLAM 2 MG/2 ML VIAL IVP ONE (08:36)
[2018-07-29] MEDS ORDERED: METOPROLOL TARTRATE 5 MG/5 ML INJ ONE (10:11)
[2018-07-29] MEDS ORDERED: NEOSTIGMINE METHYLSULFATE 5 MG/5 ML SYR ONE (10:47)
[2018-07-29] MEDS ORDERED: GLYCOPYRROLATE 0.2 MG/1 ML VIAL ONE ×2 (10:47)
[2018-07-29] MEDS ORDERED: RIVAROXABAN 10 MG TAB PO SCH (10:59)
--- NOTE | 2018-07-29 11:04 | CPEKG ---
Test Reason : OPEN Blood Pressure : / mmHG Vent. Rate : 061 BPM Atrial Rate : 062 BPM P-R Int : 229 ms QRS Dur : 075 ms QT Int : 450 ms P-R-T Axes : 092 035 062 degrees QTc Int : 454 ms Sinus rhythm Atrial premature complex Prolonged FL interval Prominent P waves, nondiagnostic Confirmed by Sukhdev Wells ([id number]) on 07/29/2018 11:03:30 AM Referred By: Confirmed By:Sukhdev Wells
--- NOTE | 2018-07-29 11:08 | POSTANESTH ---
Post Anesthetic Evaluation Cardiovascular Status: Similar to Pre-Op Cond Respiratory Status: Similar to Pre-op Cond. Level of Consciousness/Mental Status: Alert and Oriented Pain Control: Adequate, Prn Tx Ordered Nausea/Vomiting Control: Adequate, Prn Tx Ordered Complications Possibly Related to Anesthesia: None Noted
--- NOTE | 2018-07-29 15:17 | CPEKG ---
Test Reason : OPEN Blood Pressure : / mmHG Vent. Rate : 103 BPM Atrial Rate : 246 BPM P-R Int : 068 ms QRS Dur : 074 ms QT Int : 370 ms P-R-T Axes : 000 -17 014 degrees QTc Int : 485 ms Atrial flutter Borderline left axis deviation Minimal ST depression, inferior leads Confirmed by Sukhdev Wells ([id number]) on 07/29/2018 3:16:50 PM Referred By: Confirmed By:Sukhdev Wells
--- NOTE | 2018-07-29 16:26 | EPPROC ---
Electrophysiology Procedure Note: ELECTROPHYSIOLOGIC STUDY AND CATHETER MEDIATED ABLATION FOR SUBEUSTACHIAN ISTHMUS DEPENDENT COUNTERCLOCKWISE ATRIAL FLUTTER: INDICATION: Recurrent atrial flutter PROCEDURES PERFORMED: 21536-43 EP evaluation with RA/RV/LA pace/record, with arrhythmia induction 95850-57 EP evaluation with RA/RV pace record, insert/reposition catheter, with arrhythmia induction 77546 SVT ablation 55932 3D mapping Fluoroscopy Catheters & Anesthesia: The patient arrived in the Electrophysiology Laboratory in the fasting state. The right clavicular region, right groin, and left groin area were prepped and draped in the usual sterile manner. Anesthesiologist Dr. Josue Coelho administered general anesthesia. Appropriate non-invasive blood pressure, pulse oximetry and end-tidal CO2 monitoring was established. All catheters were placed percutaneously using the modified Seldinger technique , and advanced into position under fluoroscopic guidance. One #7 [place] deflectable octapolar electrode catheter was advanced to the His-bundle position via the left femoral vein (2mm spacing; except the proximal ring which was 25cm from the tip used for unipolar recordings). One #7 [place] deflectable catheter with 10 pairs of electrodes was placed via the left femoral vein into the coronary sinus. One # 7 [place] Halo catheter was inserted through the right femoral vein and was placed at the tricuspid annulus. Heparin was administered to keep ACT > 250 seconds. Programmed stimulation was performed from the right atrium, coronary sinus ( left atrium) and right ventricle. Parahisian pacing demonstrated all retrograde conduction over the AV node. On arrival to the Electrophysiology Laboratory the patient was in sinus rhythm. Atrial flutter, CL 270 ms was easily induced by CS pacing. Entrainment mapping from lateral TA, septal TA, proximal CS and distal CS confirmed cavotricuspid isthmus dependent atrial flutter. In preparation for ablation of typical atrial flutter, a high-resolution 3D (3 dimensional) Carto electroanatomical map of the sub-Eustachian isthmus and right atrium was obtained during pacing of the posterolateral coronary sinus. For ablation of typical atrial flutter, one Mobi sheath was placed in the right atrium. A #8 [place] deflectable quadrapolar electrode catheter (2mm-5mm-2mm spacing) with 3.5 mm irrigated tip electrode and location sensor for the [employer] mapping system was inserted in the long sheath and advanced to the right atrium. Radiofrequency applications were applied between the tricuspid annulus at 0630 oclock as seen in the NEETU view and the inferior vena cava. This achieved conduction block across the isthmus. Patient developed atrial fibrillation and needed cardioversion x 3 to assess block across CT isthmus. Post ablation, a high-resolution electroanatomical map of the sub-Eustachian isthmus was obtained during pacing of the posterolateral coronary sinus. This confirmed conduction block across the sub-Eustachian isthmus. Bidirectional block was also confirmed by pacing. The catheters were removed. Protamine was administered. Sheaths were removed in the EP lab after applying subcutaneous purse string suture. The patient was transferred to the cardiovascular holding area in stable condition. There were no apparent complications. CONCLUSIONS: 1. Cavotricuspid isthmus dependent counterclockwise atrial flutter. 2. Successful catheter mediated ablation of cavotricuspid isthmus achieving bi -directional conduction block across cavotricuspid isthmus. 3. No atrial arrhythmias inducible post ablation. 4. No apparent complications. Patient Problems: Problems Problem Status Onset Neoplasm of breast Active Left knee sprain Acute Right foot sprain Acute History of fall Acute Closed comminuted right humeral fracture Acute Atrial flutter Acute Hypotension Acute
[2018-07-29] MEDS ORDERED: RIVAROXABAN 20 MG TAB PO SCH (18:00)
[2018-07-29] MEDS: METOPROLOL TARTRATE 100 MG TAB PO SCH (20:05)
[2018-07-29] MEDS: ACETAMINOPHEN 325 MG TAB PO PRN (20:05)
[2018-07-29] MEDS ORDERED: ZOLPIDEM TARTRATE 5 MG TAB PO SCH (21:00)
[2018-07-30 04:50] LABS: PLATELET COUNT 168 10^3/uL (150-400)
[2018-07-30] MEDS ORDERED: LEVOTHYROXINE 112 MCG TAB PO SCH (06:00)
--- NOTE | 2018-07-30 08:55 | PDCARPN ---
Cardiology Progress Note Chief Complaint: Atrial flutter s/p ablation yesterday 07/29/2018 Assessment/Plan: Assessment: 1. Atrial fibrillation - successful ablation by Dr. Figueroa yesterday. Echo this morning is pending. Troponin this morning is 0.483 ng/mL. Xarelto re-started last night. Bilateral groin sites are clean and dry. Purse string sutures removed. No evidence of hematoma, oozing, erythema, or other concerning symptoms. 2. Hypertension - well-controlled overnight. Plan: 1. Patient is appropriate for discharge home today 2. Continue Xarelto for oral anticoagulation 07/30/18 09:54 Subjective: No issues overnight. Patient denies chest discomfort, palpitations, lightheadedness, dizziness, syncope, or near-syncope. Time Spent with Patient: greater than 25 minutes Time Spent with Patient: Greater than 25 minutes spent on this patients care, greater than 50% of time spent counseling, educating, and coordinating care regarding the above mentioned plan. Objective: Vital Signs (8 Hrs) Temp Pulse Resp BP Pulse Ox 07/30/18 04:39 36.7 C 74 16 102/64 96 Intake/Output (24 Hrs) 07/29/18 07/30/18 07/31/18 05:59 05:59 05:59 Intake Total 2100 Balance 2100 Intake: Oral (ml) 900 IV Intake (ml) 1200 Other: Weight 113.4 kg Number of Voids Toilet 1 Result Diagrams: 07/30/18 03:40 07/30/18 03:40 Cardiac Labs: Cardiac Lab Results (72 Hrs) 07/30/18 03:40 Troponin I 0.483 H Telemetry: NSR overnight ICD10 Worksheet Patient Problems: Problems Problem Status Onset Neoplasm of breast Active Atrial flutter Acute Closed comminuted right humeral fracture Acute History of fall Acute Hypotension Acute Left knee sprain Acute Right foot sprain Acute
[2018-07-30 08:56] VITALS: BP 131/79
[2018-07-30] MEDS: METOPROLOL TARTRATE 100 MG TAB PO SCH (08:57)
[2018-07-30] MEDS: ACETAMINOPHEN 325 MG TAB PO PRN (08:57)
[2018-07-30] MEDS ORDERED: ASPIRIN 81 MG CHEWABLE TAB PO SCH (09:00)
--- NOTE | 2018-07-30 09:10 | ECHO ---
[email or web address] [address] [address] Main: [phone] Fax: Transthoracic Echocardiogram Name: RODNEY PARRY MR#: [id number] Study Date: 07/30/2018 Study Time: 07:32 AM Date of : 1960 Age: 58 year(s) Height: 172.7 cm (68 in.) Weight: ( ) BSA: Gender: Female Examination: Echo Indication: F/U Post EP Study Image Quality: Adequate Contrast: Requested by: Clemente Rodrigues BP: / Heart Rate: Rhythm: Indication: F/U Post EP Study Procedure Staff Tenter Frame Operator: Becky Weller RDCS Reading Physician: Tono Figueroa MD Requesting Provider: Conclusions: Normal global systolic LV function. The ejection fraction is visually estimated to be 60 %. Mild mitral valve regurgitation is present. Moderate tricuspid regurgitation is present. Right ventricular systolic pressure measures 44mmHg. Measurements: Chambers Valvular Assessment AV/MV Valvular Assessment TV/PV Normal Normal Normal Name Value Range Name Value Range Name Value Range Ao Tiffanie (2D): 2.4 cm (1.4 cm-2.6 AV Vmax: 1.17 m/s (1 m/s-1.7 TR Vmax: 3.12 mm/s ( - ) cm) m/s) TR PGmax: 39 mmHg ( - ) IVSd (2D): 0.8 cm (0.6 cm-1.1 AV maxP mmHg ( - ) syst. PAP: 44 mmHg ( - ) cm) AV meanP mmHg ( - ) PV Vmax: 0.96 m/s (0.6 m/s-0.9 LVDd (2D): 5.0 cm (3.9 cm-5.3 ANETA (VTI): 2.1 cm ( - ) m/s) cm) MV E Vmax: 1.09 m/s ( - ) PV PGmax: 4 mmHg ( - ) LVDs (2D): 3.0 cm (2.1 cm-4 MV A Vmax: 0.65 m/s ( - ) cm) MV E/A: 1.68 ( - ) LVPWd (2D): 1.0 cm ( - ) MV PHT: 0.063 s ( - ) LVOTd 1.9 cm 1.9 cm mm MVA (PHT): 3.5 s ( - ) LVEF (MOD2): 74 % (>=55 %) Visual EF: 60 % RVDd(2D): 3.1 cm (1.9 cm-3.8 cmmm) Continued Measurements: Chambers Valvular Assessment AV/MV Valvular Assessment TV/PV Name Value Name Value Name Value LADs: 4.1 cm MV DecTime: 225 m/s CVP (est.): 5 mmHg Patient: RODNEY PARRY Study Date: 07/30/2018 Page 1 of 2 07:32 AM RA Area: 15.9 cm2 MV E' Septal: 0.08 m/s MV E/E' Septal: 14.00 MV E/E' Lateral: 9.00 Additional Vessels Name Value Ao Ascendin.3 cm Inferior Vena Cava: 1.5 cm Findings: Left Ventricle: Normal size left ventricle. No LV hypertrophy. Normal global systolic LV function. The ejection fraction is visually estimated to be 60 %. No regional wall motion abnormality. Normal diastolic LV function. Right Ventricle: Normal size right ventricle. Left Atrium: The left atrium is normal in size. Right Atrium: The right atrium is normal in size. Mitral Valve: The mitral valve is normal in appearance and function. Mild mitral valve regurgitation is present. No mitral stenosis is present. Aortic Valve: The aortic valve is tri-leaflet. Trivial aortic valve regurgitation. No aortic valve stenosis is present. Tricuspid Valve: The tricuspid valve is normal in appearance and function. Moderate tricuspid regurgitation is present. The pulmonary artery pressure is mildly increased. Right ventricular systolic pressure measures 44mmHg. Pulmonic Valve: The pulmonic valve is normal in appearance and function. There is no pulmonic regurgitation seen. Aorta: The aorta is normal. Normal size aortic root measuring 2.4 cm. Normal size ascending aorta measuring 3.3 cm. IVC: The IVC is normal sized. Pericardium: No pericardial effusion. No pleural effusion. Exam Comments: No blood pressure available. Patient has breast reconstruction/implants -- limited apical imaging. (No Signature Object) Patient: RODNEY PARRY Study Date: 07/30/2018 Page 2 of 2 07:32 AM [id number]
--- NOTE | 2018-07-30 10:27 | ASDISCHSUM ---
Discharge Information Plan Status:Home with No Needs Medically Cleared to Leave:07/29/2018 Discharge Date:07/29/2018 CM D/C Disposition:Home, Routine, Self-Care ADT D/C Disposition:Home, Routine, Self-Care Projected Discharge Date:07/29/2018 Transportation at D/C: Discharge Delay Reason: Follow-Up Date:07/29/2018 Discharge Slot: Final Diagnosis: Placement Information Patient Contact Information Contact Name:RAFY Relationship:Friend Address:[address] Home Phone: City:[place] Alternate Phone: State/Zip Code:[place] [address] Email: Financial Information Financial Class:Medicaid Primary Plan Desc:MEDICA[employer] HEALTH [employer] Primary Plan Number:[id number] Secondary Plan Desc: Secondary Plan Number: Assessment Information LACE LACE Length of stay for Answers: Less than 1 day current admission Acuity / Level of Answers: No Care: Did the patient have an inpatient admission? Comorbidities - select Answers: Opioid dependence all that apply / Chronic pain Other Notes: HTN; Hypothyroid # of Emergency department Answers: 1-2 visits in the last 6 months Social determinants Answers: Mental health diagnosis (anxiety, depression, pers onality disorders, etc.) Score: 9 Date Signed: 07/30/2018 10:26 AM Electronically Signed By:Lanie Silverman RN Intervention Information
--- NOTE | 2018-07-30 13:44 | GDS ---
ADMISSION DIAGNOSIS: Atrial flutter. DISCHARGE DIAGNOSIS: Atrial flutter status post ablation. HOSPITAL COURSE: Patient is well known to Dr. Tono Figueroa and she presented yesterday for ablation of her symptomatic atrial flutter. Her procedure was successful without any complications. No issues overnight. Echo this morning is stable. Troponin is 0.483 mcg/mL (expected). Labs are otherwise stable. Her Xarelto was restarted last night. Bilateral groin sites are clean and dry. Her pursestring sutures were removed this morning without evidence of hematoma , oozing, erythema, or other concerning symptoms. Patient is appropriate and stable for discharge today. CONCLUSION: 1. Cavotricuspid isthmus dependent counterclockwise atrial flutter. 2. Successful catheter mediated ablation of cavotricuspid isthmus, achieving bidirectional conduction block across the isthmus. 3. No atrial arrhythmias inducible post ablation. 4. No apparent complications. PHYSICAL EXAM: VITAL SIGNS: Blood pressure 131/79, heart rate 70, SpO2 of 94% on room air. GENERAL: Patient is alert and oriented without apparent distress. CARDIAC: Regular rate and rhythm. No arrhythmia noted on telemetry overnight. RESPIRATORY: Clear to auscultation. EXTREMITIES: Pulses 2+ bilaterally. Bilateral groin sites are clean and dry. Pursestring sutures removed without evidence for hematoma, oozing, redness, swelling, warmth, or other concerning symptoms. MEDICATIONS: Please refer to patient's electronic medical record for full medication list. We have restarted her Xarelto 20 mg daily. She will continue metoprolol 100 mg BID. DISCHARGE INSTRUCTIONS: 1. Groin precautions reviewed in detail with patient. 2. Continue Xarelto daily. 3. Follow up in clinic August 20 at 1:45 p.m. as scheduled. /[id number]/MODL MTDD
--- NOTE | 2018-07-30 16:31 | CPEKG ---
Test Reason : OPEN Blood Pressure : / mmHG Vent. Rate : 066 BPM Atrial Rate : 066 BPM P-R Int : 203 ms QRS Dur : 083 ms QT Int : 433 ms P-R-T Axes : 058 -01 037 degrees QTc Int : 454 ms Sinus rhythm Borderline prolonged CO interval Confirmed by Sukhdev Wells ([id number]) on 07/30/2018 4:31:15 PM Referred By: Confirmed By:Sukhdev Wells
== END 2018-07-30 11:05 | disposition home or self-care (01) ==
LOC: FCATH 06:53 → F2W 10:55
PROVIDERS: ADMIT Registered Nurse; ATTEND Internal Medicine Cardiovascular Disease
DX: I48.92 Unspecified atrial flutter (principal); I48.91 Unspecified atrial fibrillation; I10 Essential (primary) hypertension; E11.9 Type 2 diabetes mellitus without complications; Z82.49 Family history of ischemic heart disease and other diseases of the circulatory system
CPT/HCPCS: 93005; 93306; 93312; G0378; J1644; J2001; J2250; J2704; J2710; J3010

== ENCOUNTER → 2018-11-06 | Outpatient (CLI) | payer MEDICAID ==
[~2018-11-06] MED LIST: IOPAMIDOL (ISOVUE 370) 100 ML BTL IV ONE
== END ==
LOC: FIMAGING 08:25
PROVIDERS: ATTEND Internal Medicine Cardiovascular Disease
DX: R59.0 Localized enlarged lymph nodes (principal); I48.91 Unspecified atrial fibrillation; Z85.3 Personal history of malignant neoplasm of breast
CPT/HCPCS: Q9967

== ENCOUNTER 2018-11-10 06:57 | Observation (INO) | payer MEDICAID ==
[2018-11-10] MEDS ORDERED: NS 1,000 ML IV ONE (07:01)
[2018-11-10 07:32] LABS: PLATELET COUNT 191 10^3/uL (150-400)
[2018-11-10] MEDS ORDERED: HEPARIN/DEXTROSE 25,000 UNIT/500 ML BAG ONE (07:33)
[2018-11-10] MEDS ORDERED: LIDOCAINE 1% 300 MG/30 ML SDV ONE ×2 (07:33→14:39)
[2018-11-10] MEDS ORDERED: HEPARIN 10,000 UNIT/10 ML MDV (1,000 UNIT/ML) ONE (07:33)
[2018-11-10] MEDS ORDERED: BUPIVACAINE 0.75% 10 ML SDV ONE (07:34)
[2018-11-10] MEDS ORDERED: IOPAMIDOL (ISOVUE-300) 100 ML BTL ONE (07:34)
[2018-11-10 07:42] LABS: INR 0.95 (0.83-1.16); PROTIME(PATIENT) 12.9 SEC (12.0-15.0)
--- NOTE | 2018-11-10 08:02 | PDGENHP ---
History & Physical Chief Complaint: AFIB Relevant Physical Exam: s1s2 cta ao3 Cardiorespiratory Assessment: for jaleesa and afib ablation
[2018-11-10] MEDS ORDERED: fentaNYL 100 MCG/2 ML INJ IVP PRN (08:29)
[2018-11-10] MEDS ORDERED: ACETAMINOPHEN 500 MG TAB PO PRN (08:29)
[2018-11-10] MEDS ORDERED: ALBUTEROL 3 ML DEYVIAL IH PRN (08:29)
[2018-11-10] MEDS ORDERED: MIDAZOLAM 2 MG/2 ML VIAL IVP ONE (08:29)
[2018-11-10] MEDS ORDERED: ONDANSETRON 4 MG/2 ML VIAL IVP PRN (08:29)
[2018-11-10] MEDS ORDERED: NALOXONE HCL 0.4 MG/ML INJ IVP PRN (08:29)
--- NOTE | 2018-11-10 08:30 | PDANEPAE ---
ANE History of Present Illness EP Study ANE Past Medical History - Cardiovascular History Hx Hypertension: Yes - Pulmonary History Hx Oxygen in Use at Home: No Hx Sleep Apnea: No - Endocrine History Hx Diabetes: No - Chronic Pain History Chronic Pain: Yes ANE Review of Systems Review of Systems: ANE Patient History - Allergies Allergies/Adverse Reactions: cephalexin monohydrate [From Keflex] Allergy (Intermediate, Verified 11/14/15 13 :41) FAMILY HISTORY OF ALLERGIES dexamethasone [Dexamethasone] Allergy (Intermediate, Verified 11/14/15 13:41) BODY ACHES - Home Medications Home Medications: Levothyroxine [Synthroid 112 mcg (*)] 112 mcg PO DAILY06 04/10/18 [Last Taken 06:00] Rivaroxaban [Xarelto] 20 mg PO DAILY18 07/29/18 [Last Taken 11/07/18 19:00] Omeprazole 11/10/18 [Last Taken 11/10/18 06:00] - Smoking Hx Smoking Status: Former smoker ANE Labs/Vital Signs - Labs Result Diagrams: 11/10/18 07:20 11/10/18 07:20 - Vital Signs Height: 175.26 cm Weight: 122.47 kg ANE Physical Exam - Airway Neck exam: FROM Mallampati Score: Class 2 Mouth exam: normal dental/mouth exam - Pulmonary Pulmonary: clear to auscultation - Cardiovascular Cardiovascular: irregularly irregular - ASA Status ASA Status: III
[2018-11-10] MEDS ORDERED: MIDAZOLAM 2 MG/2 ML VIAL ONE (09:55)
[2018-11-10] MEDS ORDERED: PROPOFOL 200 MG/20 ML VIAL ONE (10:03)
[2018-11-10] MEDS ORDERED: fentaNYL 100 MCG/2 ML INJ ONE ×5 (10:04→13:11)
[2018-11-10] MEDS ORDERED: METOCLOPRAMIDE 10 MG/2 ML VIAL ONE (10:11)
[2018-11-10] MEDS ORDERED: ROCURONIUM 50 MG/5 ML VIAL ONE ×2 (10:11→10:56)
[2018-11-10] MEDS ORDERED: ONDANSETRON 4 MG/2 ML VIAL ONE (10:11)
[2018-11-10] MEDS ORDERED: PHENYLEPHRINE HCL 100 MCG/ML SYR ONE (10:30)
[2018-11-10] MEDS ORDERED: SEVOFLURANE 250 ML BOTTLE IH ONE (10:51)
[2018-11-10] MEDS ORDERED: SUGAMMADEX SODIUM 200 MG/2 ML VIAL IVP ONE (11:54)
[2018-11-10] MEDS ORDERED: PROTAMINE SULFATE 50 MG/5 ML VIAL IVP ONE (12:09)
--- NOTE | 2018-11-10 13:15 | EPPROC ---
Electrophysiology Procedure Note: ELECTROPHYSIOLOGIC STUDY AND BALLOON-CATHETER MEDIATED CRYOABLATION FOR PAROXYSMAL ATRIAL FIBRILLATION AND ATRIAL FLUTTER Procedures performed: 59862-14 EP evaluation with RA/RV/LA pace/record, with arrhythmia induction 58704-62 EP evaluation with RA/RV pace record, insert/reposition catheter, with arrhythmia induction 03454 Atrial fibrillation ablation Second arrhythmia Intracardiac echocardiogram Transseptal puncture Fluoroscopy INDICATION: Paroxysmal atrial fibrillation Prior AFL ablation PROCEDURE: The patient arrived in the Electrophysiology Laboratory in the fasting state. The right groin, left groin and right infraclavicular area were prepped and draped in the usual sterile fashion. Anesthesiologist administered general anesthesia Dr. Clara Landry. All catheters were placed percutaneously using the Seldinger technique and advanced into position under fluoroscopic guidance. One #7 Omani deflectable octapolar electrode catheter was placed in the His-bundle position via the left femoral vein (2mm spacing, IVC electrode for unipolar recordings). This catheter was placed in the coronary sinus after transseptal puncture and later placed in the SVC-R subclavian vein junction to pace the right phrenic nerve during right pulmonary vein ablation. One #8 [place]i AcuNaV ultrasound catheter was placed in the left femoral vein and advanced into the right atrium. Programmed stimulation was performed from the right atrium, left atrium (CS) and right ventricle. There was no evidence of AV accessory pathway. Intracardiac echo evaluation of the left atrium and pulmonary veins was performed. Baseline ACT was drawn and heparin bolus was administered and heparin drip was started prior to transseptal puncture. ACT was checked every 15 minutes and maintained in the range of 350-400 seconds. One 14Fr short sheath was placed in the right femoral vein. One 8Fr SL1 sheath was advanced into the right atrium via the 14Fr short sheath. Transseptal puncture was performed under intracardiac ultrasound, fluoroscopic and hemodynamic guidance placing the sheath into the left atrium. [place] RF needle ( C0 curve) was used. The mean left atrial pressure was 14 mmHg. Pulmonary vein angiogram was done using SL1 sheath. CT angiography of pulmonary veins was done previously. There were distinct LSPV, LIPV, RSPV and RIPV. The SL1 sheath was exchanged for a Coqueluxtronic Flexcath sheath using an Amplatz stiff guide wire. A 28 mm Cryoballoon catheter with a 20 mm Achieve catheter was placed via the sheath into the left atrium. Intracardiac ultrasound and PV angiograms were used to assist in placing the mapping catheter at the antrum of the pulmonary veins. All pulmonary veins were isolated successfully using cryoballoon ablation using freeze/thaw/freeze cycles at 2-3-minute intervals, with good [id number] of isolation. Coumadin ridge/Ligament of [place] region was ablated. Pre and post pulmonary vein recordings were measured on the spiral Achieve catheter to ensure complete pulmonary vein isolation. During the right-sided ablation, phrenic nerve pacing was performed to assess the phrenic nerve strength ( manually and with ICE visualization of liver movement during phrenic capture) and the phrenic nerve was intact throughout the right-sided ablation and at the end of the procedure. An esophageal temperature probe (12 electrode, Circa) was placed by the anesthesiologist at the beginning of the procedure. Esophageal temperature was monitored continuously and cryoablation was interrupted if esophageal temperature was <15 C. Cryoapplications 9 total cryoablation time 1383 s. Catheter and sheath were withdrawn into the RA, Halo catheter was placed along TA. There was conduction across CT isthmus, ablation was done in mid isthmus to achieve bidirectional block which was confirmed with 3D mapping. ICE imaging post ablation was consistent with pre ablation imaging with no changes noted, moreover there was no left atrial/left ventricular thrombus and no pericardial effusion. The catheters were withdrawn. Protamine was given. Venous vascular access sheaths were removed in the EP lab after placing subcutaneous pursestring suture. The patient was recovered from anesthesia. There were no complications. The patient was arousable and moving all four extremities at the end of the procedure. CONCLUSIONS: 1. Paroxysmal atrial fibrillation. 2. Successful pulmonary vein isolation procedure (left and right pulmonary vein antrum) using cryoballoon ablation. 3. CT isthmus re-ablation achieving bidirectional conduction block. 4. No apparent complications. Patient Problems: Problems Problem Status Onset Neoplasm of breast Active Left knee sprain Acute Right foot sprain Acute History of fall Acute Closed comminuted right humeral fracture Acute Atrial flutter Acute Hypotension Acute
--- NOTE | 2018-11-10 13:47 | POSTANESTH ---
Post Anesthetic Evaluation Cardiovascular Status: Normal, Stable Respiratory Status: Normal, Stable Level of Consciousness/Mental Status: Can Participate in Eval, Alert and Oriented Pain Control: Adequate, Prn Tx Ordered Nausea/Vomiting Control: Adequate, Prn Tx Ordered Complications Possibly Related to Anesthesia: None Noted
[2018-11-10] MEDS ORDERED: fentaNYL 100 MCG/2 ML INJ IV ONE (14:15)
[2018-11-10] MEDS: HYDROCODONE/APAP 5/325 TAB PO PRN ×2 (14:22→22:54)
[2018-11-10] MEDS ORDERED: LIDOCAINE 1% 2 ML INJ ID ONE (14:50)
--- NOTE | 2018-11-10 14:55 | SOAPPROG ---
SOAP Progress Note Assessment/Plan: Assessment: Blown PIV. L arm s/p lymph node dissection from breast CA. Used US to ID a vein in right AC Plan: 11/10/18 14:51 replaced PIV for IV access after original PIV "blew." CHP, US, 0.2ml 1% Lido ID. 18g catheter introduced to viable vein in AC. Free saline push and PIV running well fgrom 500ml bag. catheter secured in place. No complications Subjective: asked to start PIV urgently in ICU because of blown PIV s/p EP study Objective: Laboratory Results 11/10/18 07:20 11/10/18 07:20 PT 12.9 SEC (12.0-15.0) 11/10/18 07:20 INR 0.95 (0.83-1.16) 11/10/18 07:20 Patient alert, oriented and comfortable. nervous, tired of "being poked" but still in good spirits. AF/VSS. lying flat s/p groin catheterization for EP study. otherwise nml physical exam - Time Spent With Patient Time Spent With Patient: 20min - Pending Discharge Pending Discharge Within 24 Hours: Yes Pending Discharge Date: 11/11/18 Pending Discharge Time: 11:00 ICD10 Worksheet Patient Problems: Problems Problem Status Onset Neoplasm of breast Active Atrial flutter Acute Closed comminuted right humeral fracture Acute History of fall Acute Hypotension Acute Left knee sprain Acute Right foot sprain Acute
--- NOTE | 2018-11-10 15:21 | ASMTCMCOM ---
CM Note CM Note Notes: Pt is a 58 year old F here for cardiac ablation. Pt lives locally, independent prior to admission. No therapies are ordered at this time, pt likely will be discharged independently once medically stable. CM available if needs arise. Plan: Independent once medically stable. Date Signed: 11/10/2018 03:21 PM Electronically Signed By:POLLO Lu
[2018-11-10] MEDS ORDERED: RIVAROXABAN 20 MG TAB PO SCH (18:00)
[2018-11-11] MEDS: HYDROCODONE/APAP 5/325 TAB PO PRN (03:57)
[2018-11-11 05:05] LABS: PLATELET COUNT 142 10^3/uL (150-400)
[2018-11-11] MEDS ORDERED: LEVOTHYROXINE 112 MCG TAB PO SCH (06:00)
[2018-11-11 09:15] VITALS: BP 157/74
[2018-11-11] MEDS: METOPROLOL TARTRATE 100 MG TAB PO SCH ×2 (09:15)
--- NOTE | 2018-11-11 12:06 | GDS ---
[f rep st] DISCHARGE SUMMARY ADMISSION DIAGNOSES: 1. Atrial fibrillation. 2. Atrial flutter status post successful ablation 07/29/2018. DISCHARGE DIAGNOSES: 1. Atrial fibrillation status post successful ablation 11/10/2018. 2. Atrial flutter status post successful ablation 07/29/2018. PROCEDURES PERFORMED DURING HOSPITALIZATION: 1. Electrocardiogram. 2. Electrophysiology study. 3. Atrial fibrillation ablation with cryoballoon pulmonary vein isolation. 4. Echocardiogram. HOSPITAL COURSE: Patient presented 11/10/2018 [facility] which has been increasingly symptomatic over the past several weeks. She und erwent successful atrial fibrillation ablation with Dr. Tono Figueroa without any intraprocedure complic ations. She has done very well overnight without issue and has been up ambulating around her room thi s morning. She is appropriate and stable for discharge home today. CURRENT PHYSICAL EXAMINATION: GENERAL: Alert and oriented x4. No apparent distress. VITAL SIGNS: Blo od pressure 126/67, heart rate 83, respiratory rate 12, SpO2 of 98% on room air, temp 36.6 degrees Ce lsius. RESPIRATORY: Lungs are clear to auscultation without adventitious breath sounds. CARDIAC: Norm al S1, S2. No S3 or S4, no murmurs. Rhythm is regular. ABDOMEN: Normoactive bowel sounds times all 4 quadrants. No masses or tenderness. ABDOMEN: Soft to palpation. SKIN: Oretta, warm, dry without cyanosi s, clubbing, or peripheral edema. EXTREMITIES: Bilateral pursestring sutures removed intact without e vidence of hematoma, redness, oozing, swelling, or warmth. Pulses are 2+ bilaterally, no edema. LABORATORY STUDIES: Drawn today. CBC more or less stable compared to preprocedure. Troponin 8.7. Yoko vated troponin is to be expected in the postprocedure setting. PROCEDURES: 1. Electrophysiology study and atrial fibrillation ablation as mentioned above. 2. Preliminary review of echocardiogram this morning demonstrates normal systolic function without n ew wall motion abnormalities or pericardial effusion. 3. Electrocardiogram this morning demonstrates normal sinus rhythm without ST-T wave or UT interval abnormalities. DISCHARGE DISPOSITION: Patient will be discharged home in stable condition. She is under activity re strictions as below. DISCHARGE MEDICATIONS: Please see discharge medication reconciliation sheet for full details. Please note that patient has been restarted on her Xarelto 6 hours post procedure and she will continue ome prazole for GI prophylaxis for the next 6 weeks. She may not stop her Xarelto for any reason within t he next 3 months. DISCHARGE INSTRUCTIONS: Post atrial fibrillation ablation instructions reviewed with patient in [facility]. We discussed activity restrictions including lifting more than 10 pounds and avoidance of submerg ed bathing for 10 days. She will get up and walk around every 45 minutes for 45 days. She will avoid unpressurized air travel or scuba diving for the next 6 months, and she will present to our clinic fo r an echocardiogram prior to engaging in either of these activities. We also discussed bleeding preca utions, medication compliance, monitoring for signs and symptoms of infection, monitoring for atrioes ophageal fistula, and monitoring for sustained arrhythmia. At the time of discharge, patient verbaliz es understanding regarding all discharge instructions without questions or concerns. She has a follow up visit scheduled in early November and she will contact our clinic with new or concerning symptoms bright or to her upcoming visit. Time spent on discharge greater than 30 minutes. /[id number]/MODL
--- NOTE | 2018-11-11 17:43 | ECHO ---
[email or web address] [address] [address] Main: [phone] Fax: Transthoracic Echocardiogram Name: RODNEY PARRY MR#: [id number] Study Date: 11/11/2018 Study Time: 08:44 AM Date of : 1960 Age: 58 year(s) Height: 175.3 cm (69 in.) Weight: 122.47 kg (270 lb.) BSA: 2.35 m2 Gender: Female Examination: Echo Indication: F/U Post EP Study Image Quality: Adequate Contrast: Requested by: Tono Figueroa BP: 147 mmHg/94 mmHg Heart Rate: Rhythm: Indication: F/U Post EP Study Procedure Staff Senior Sql Server Developer: Becky Weller NIKITA Reading Physician: Karrie Valencia MD Requesting Provider: Conclusions: Normal size left ventricle. No LV hypertrophy. Normal global systolic LV function. EF is 64 %. No regional wall motion abnormality. Normal size right ventricle. Normal RV function. The left atrium is mildly to moderately dilated. Mild to moderate mitral regurgitation. Moderate tricuspid regurgitation is present. Right ventricular systolic pressure measures 47mmHg. No pericardial effusion. Limited windows due to left mastectomy and breast implant. Measurements: Chambers Valvular Assessment AV/MV Valvular Assessment TV/PV Normal Normal Normal Name Value Range Name Value Range Name Value Range Ao Tiffanie (2D): 2.6 cm (1.4 cm-2.6 AV Vmax: 1.44 m/s (1 m/s-1.7 TR Vmax: 3.24 mm/s ( - ) cm) m/s) TR PGmax: 42 mmHg ( - ) IVSd (2D): 0.9 cm (0.6 cm-1.1 AV maxP mmHg ( - ) syst. PAP: 47 mmHg ( - ) cm) AV meanP mmHg ( - ) PV Vmax: 1.11 m/s (0.6 m/s-0.9 LVDd (2D): 5.2 cm (3.9 cm-5.3 ANETA (VTI): 1.5 cm ( - ) m/s) cm) MV E Vmax: 1.16 m/s ( - ) PV PGmax: 5 mmHg ( - ) LVDs (2D): 3.4 cm (2.1 cm-4 MV A Vmax: 0.62 m/s ( - ) cm) MV E/A: 1.87 ( - ) LVPWd (2D): 0.9 cm ( - ) MV PHT: 0.053 s ( - ) LVOTd 1.8 cm 1.8 cm mm MVA (PHT): 4.2 s ( - ) LVEF (BP): 64 % (>=55 %) Patient: RODNEY PARRY Study Date: 11/11/2018 Page 1 of 2 08:44 AM RVDd(2D): 2.9 cm (1.9 cm-3.8 cmmm) Continued Measurements: Chambers Valvular Assessment AV/MV Valvular Assessment TV/PV Name Value Name Value Name Value LADs: 4.2 cm MV DecTime: 165 m/s CVP (est.): 5 mmHg MV E' Septal: 0.06 m/s MV E/E' Septal: 18.00 MV E/E' Lateral: 13.70 Additional Vessels Name Value Ao Ascendin.3 cm Inferior Vena Cava: 1.7 cm Findings: Left Ventricle: Normal size left ventricle. No LV hypertrophy. Normal global systolic LV function. EF is 64 %. No regional wall motion abnormality. Right Ventricle: Normal size right ventricle. Normal RV function. Left Atrium: The left atrium is mildly to moderately dilated. Right Atrium: The right atrium is normal in size. Mitral Valve: The mitral valve is normal in appearance and function. Mild to moderate mitral regurgitation. No mitral stenosis is present. Aortic Valve: The aortic valve is tri-leaflet. There is no significant aortic valve regurgitation. No aortic valve stenosis is present. Tricuspid Valve: The tricuspid valve is normal in appearance and function. Moderate tricuspid regurgitation is present. The pulmonary artery pressure is moderately increased. Right ventricular systolic pressure measures 47mmHg. Pulmonic Valve: The pulmonic valve is normal in appearance and function. Trivial pulmonic valve regurgitation. Aorta: The aorta is normal. Normal size aortic root measuring 2.6 cm. Normal size ascending aorta measuring 3.3 cm. IVC: The IVC is normal sized. Pericardium: No pericardial effusion. Exam Comments: Limited windows due to left mastectomy and breast implant. (No Signature Object) Patient: RODNEY PARRY Study Date: 11/11/2018 Page 2 of 2 08:44 AM [id number]
--- NOTE | 2018-11-12 06:40 | ECHO ---
[email or web address] [address] [address] Main: [phone] Fax: Transesophageal Echocardiography Name: RODNEY PARRY MR#: [id number] Study Date: 11/10/2018 Study Time: 10:25 AM Date of : 1960 Age: 58 year(s) Height: ( ) Weight: ( ) BSA: Gender: Female Examination: CITLALI Indication: R/O thrombus pre EP study Image Quality: Contrast: Requested by: Tono Figueroa Heart Rate: Rhythm: BP: / Procedure Staff Photograph Printer: Estefany Douglas RDCS Reading Physician: Tono Figueroa MD Requesting Provider: CITLALI Exam Details Measurements: Chambers Valvular Assessment AV/MV Valvular Assessment TV/PV Normal Normal Normal Name Value Range Name Value Range Name Value Range EF Range: 55-60 % Additional Measurements: Findings: The ejection fraction is estimated to be 55-60 %. Left Atrium: An agitated saline study was performed and was negative for intracardiac shunting. Left Atrial Appendage: No thrombus in left appendage. Mitral Valve: The mitral valve is normal in appearance. Moderate mitral valve regurgitation is present. Aortic Valve: The aortic valve is tri-leaflet. There is no significant aortic valve regurgitation. l1n (No Signature Object) Patient: RODNEY PARRY Study Date: 11/10/2018 Page 1 of 2 10:25 AM Patient: RODNEY PARRY Study Date: 11/10/2018 Page 2 of 2 10:25 AM [id number]
--- NOTE | 2018-11-17 14:13 | CPEKG ---
Test Reason : Pre-electrophysiology study Blood Pressure : / mmHG Vent. Rate : 139 BPM Atrial Rate : 156 BPM P-R Int : 055 ms QRS Dur : 075 ms QT Int : 335 ms P-R-T Axes : 000 041 047 degrees QTc Int : 510 ms Atrial tachycardia Confirmed by José Antonio Mak ([id number]) on 11/17/2018 2:13:04 PM Referred By: Tono Figueroa Confirmed By:José Antonio Mak
--- NOTE | 2018-11-17 14:37 | CPEKG ---
Test Reason : OPEN Blood Pressure : / mmHG Vent. Rate : 084 BPM Atrial Rate : 084 BPM P-R Int : 152 ms QRS Dur : 075 ms QT Int : 406 ms P-R-T Axes : 032 -07 058 degrees QTc Int : 480 ms Sinus rhythm Low voltage, precordial leads Confirmed by José Antonio Mak ([id number]) on 11/17/2018 2:37:17 PM Referred By: Tono Figueroa Confirmed By:José Antonio Mak
--- NOTE | 2018-11-17 15:12 | CPEKG ---
Test Reason : OPEN Blood Pressure : / mmHG Vent. Rate : 087 BPM Atrial Rate : 087 BPM P-R Int : 207 ms QRS Dur : 069 ms QT Int : 380 ms P-R-T Axes : 008 -07 032 degrees QTc Int : 457 ms Sinus rhythm Atrial premature complex Borderline prolonged IL interval Probable left atrial enlargement Low voltage, precordial leads Confirmed by José Antonio Mak ([id number]) on 11/17/2018 3:12:38 PM Referred By: Tono Figueroa Confirmed By:José Antonio Mak
== END 2018-11-11 11:21 | disposition home or self-care (01) ==
LOC: FCATH 06:57 → F2N 12:53
PROVIDERS: ADMIT Internal Medicine Cardiovascular Disease; ATTEND Internal Medicine Cardiovascular Disease
DX: I48.0 Paroxysmal atrial fibrillation (principal); I48.92 Unspecified atrial flutter; I10 Essential (primary) hypertension; E03.9 Hypothyroidism, unspecified; Z85.3 Personal history of malignant neoplasm of breast
CPT/HCPCS: 93306; 93312; 93613; 93655; 93656; C1893; C1730; C1731; C1732; C1733; C1759; C1766; J1644; J2250; J2370; J2405; J2704; J2720; J2765; J3010; Q9967